=== PATIENT | male | born 1935 | race Caucasian/White ===

== ENCOUNTER 2020-05-03 20:10 | Emergency (ER) | payer MEDICARE, SELFPAY ==
[2020-05-03] VITALS (9 sets, daily range): BP systolic 113–162; BP diastolic 74–81; PULSE 80–85; RESP 15–26; TEMP 37.2; O2SAT 93–96
--- NOTE | ~2020-05-03 | XR_ITS ---
EXAMINATION: XR chest 1V portable INDICATION: Shortness of breath and fever TECHNIQUE: Portable AP chest at 2044 hours COMPARISON: 09/27/2013 FINDINGS: The lungs are free of acute opacities. There is no pleural effusion or pneumothorax. The ca rdiomediastinal silhouette is normal. Calcified left hilar lymph nodes are consistent with old granul omatous disease. IMPRESSION: 1. No acute cardiopulmonary abnormality. Reviewed, dictated and finalized at location A. ING PROGRAM CHAIR
--- NOTE | 2020-05-03 20:23 | ECG_ITS ---
Measurements Intervals [place] Rate: 84 P: 63 CA: 172 QRS: -23 QRSD: 133 T: 104 QT: 382 QTc: 453 Interpretive Statements SINUS RHYTHM INTRAVENTRICULAR CONDUCTION DELAY BORDERLINE R WAVE PROGRESSION, ANTERIOR LEADS BORDERLINE ST-T WAVE ABNORMALITY- HIGH LATERAL LEADS BASELINE WANDER- I BORDERLINE ECG Electronically Signed On 05-04-2020 7:27:42 BOILER SETTER by Nick Lopez D.O.
[2020-05-03 20:33] LABS: Basophils Percent Auto 0.3 % (0.2-1.2); Eosinophils Percent Auto 0.4 % (0-4.4); Hematocrit 42.4 % (42.0-52.0); Hemoglobin 14.4 g/dL (14.0-18.0); Immature Granulocyte Absolute 0.06 K/mm3 (0.00-0.031); Immature Granulocyte Percent A 0.8 % (0-0.5); Lymphocytes Absolute Auto 0.27 K/mm3 (0.9-3.2); Lymphocytes Percent Auto 3.7 % (18.3-44.2); Mean Corpuscular Hemoglobin 33.8 pg (26-34); Mean Corpuscular Volume 99.5 fl (80-100); Mean Platelet Volume 8.3 fl (7.4-10.4); Monocytes Absolute Auto 1.1 K/mm3 (0.1-0.6); Monocytes Percent Auto 14.4 % (2.6-8.5); Neutrophils Absolute Auto 5.9 K/mm3 (1.3-6.7); Neutrophils Percent Auto 80.4 % (45.5-73.1); Platelet Count Result 123 k/mm3 (150-375); Red Blood Count 4.26 M/mm3 (4.6-6.20); Red Cell Distribution Width 12.8 % (11.5-14.5); White Blood Count 7.3 K/mm3 (4.5-10.0)
[2020-05-03 20:44] LABS: Anion Gap 9 mmol/L (8-16); Blood Urea Nitrogen 40 mg/dL (9-20); Calcium 9.4 mg/dL (8.4-10.2); Carbon Dioxide 29 mmol/L (22-30); Chloride 97 mmol/L (98-107); Estimated CRCL calculation 30 ml/min; Estimated Glomerular Filt Rate 45; Glucose 142 mg/dL (75-110); Potassium 4.1 mmol/L (3.4-5.0); Sodium 135 mmol/L (137-145)
[2020-05-03] MEDS: ALBUTEROL SULFATE (*SP) AEROSOL 1 PUFF 2 PUFF INHALATION (20:59)
[2020-05-03 21:29] LABS: Alanine Aminotransferase 24 U/L (4-50); Alkaline Phosphatase 91 U/L (38-126); Aspartate Amino Transferase 28 U/L (17-59); Bilirubin,Total 0.4 mg/dL (0.2-1.3)
[2020-05-03 21:41] LABS: NT Pro B Type Natriuretic Pept 690 PG/ML (5-100); Troponin I 0.026 ng/mL (0.000-0.034)
--- NOTE | 2020-05-03 22:11 | ED.GENADULT ---
HPI - General Adult General Chief complaint: Shortness of Breath/Dyspnea Stated complaint: short of breath Time Seen by Provider: 05/03/20 20:29 History of Present Illness HPI narrative: Patient is an 84-year-old gentleman who presents to the emergency department with chief complaint of shortness of breath. The patient reports that tonight he had a coughing fit and then felt as though he was short of breath. The patient states that he decided to come to the emergency department for evaluation and states that he is scared that he may have had Covid exposure even though he has been wearing a mask patient reported that several days ago he decided to go out with his grandson and have a beer at a bar. Patient reports that he had a tickle in his throat and has had a dry cough that has been nonproductive. Patient denies fever denies chills reports that he is not been tested for COVID-19. Related Data Home Medications Medication Instructions Recorded Confirmed aspirin 81 mg tablet,delayed 81 mg PO DAILY 03/19/19 01/22/20 release naproxen sodium 220 mg tablet 220 mg PO BID PRN 03/19/19 01/22/20 triamcinolone acetonide 0.1 % 1 applic TOPICAL QID 03/19/19 01/22/20 topical cream cetirizine 10 mg tablet 5 mg PO DAILY PRN 09/05/19 01/22/20 docusate sodium 100 mg tablet 100 mg PO BID 09/05/19 01/22/20 [id number] tablet 1 tablet PO .QD tablet 09/05/19 01/22/20 melatonin 10 mg capsule 10 mg PO DAILY cap 09/05/19 01/22/20 timolol maleate 0.25 % eye drops 1 drop EACH EYE Q12H 12/23/19 01/22/20 Allergies Allergy/AdvReac Type Severity Reaction Status Date / Time diclofenac Allergy Unknown unknown Verified 11/10/19 09:25 lisinopril Allergy Unknown cough Verified 11/10/19 09:25 Sulfa (Sulfonamide Allergy Unknown Pt does Verified 11/10/19 09:25 Antibiotics) not remember reaction metronidazole AdvReac Severe DIARRHEA Verified 11/10/19 09:25 Review of Systems Review of Systems: Narrative: A 10 system review of systems was completed on the patient and is negative except for what is stated in the HPI. Nursing and ancillary documentation was reviewed. [facility] Past Medical History Medical History Achalasia 2013 BMI 26.0-26.9,adult Surgical History Surgical History H/O hernia repair 06/07/2010 History of colonoscopy 09/05/2013 History of esophageal surgery Heller myotomy with gastric wrap, 02/11/2014 Social History Social History Smoking status: Never smoker Alcohol intake: current Exam Narrative: Exam Narrative: GENERAL: Well-appearing, well-nourished, and in no acute distress. HEAD: Normocephalic, atraumatic. EYES: PERRLA and EOMI. ENT: Nares clear, no rhinorrhea or epistaxis. Mucous membranes moist. NECK: Supple. CHEST: Clear to auscultation. No respiratory distress. HEART: Regular rate and rhythm. No murmur heard. Normal peripheral pulses. ABDOMEN: Soft, nontender, nondistended, normal active bowel sounds. EXTREMITIES: Normal range of motion. No edema. SKIN: Warm, dry, no rash. NEURO: No focal deficits. Alert and oriented x3. PSYCH: Normal mood and affect. Course Course Emergency Course: Patient's EKG showed no evidence of acute ischemia. Initial troponin was in the negative range. BNP was mildly elevated but he does have prior history of mild elevation in his BNP. The chest x-ray showed no evidence of focal infiltrate and no findings consistent with congestive heart failure. Patient is feeling much better was able to ambulate without hypoxia. Vital Signs Vital signs: Vital Signs Temperature 37.2 C 05/03/20 20:17 Pulse Rate 82 05/03/20 20:17 Respiratory Rate 22 H 05/03/20 20:17 Blood Pressure 162/81 H 05/03/20 20:17 Pulse Oximetry 96 05/03/20 20:17 Temperature 37.2 C 05/03/20 20:1
--- NOTE | 2020-05-03 22:18 | PC.NURSE ---
Patient ambulated with SpO2 sensor. Patient's O2 ranged from 92%-94% on room air. CHRISTINE Carrero notified.
[2020-05-04 18:44] LABS: SARS-CoV-2 RNA PCR Positive
== END 2020-05-03 22:50 | disposition home or self-care (01) ==
PROVIDERS: Emergency Provider Emergency Medicine; PCP Family Medicine
DX: U07.1 COVID-19 (principal); Z79.82 Long term (current) use of aspirin; I45.9 Conduction disorder, unspecified; R94.31 Abnormal electrocardiogram [ECG] [EKG]; E78.00 Pure hypercholesterolemia, unspecified; I10 Essential (primary) hypertension; I35.0 Nonrheumatic aortic (valve) stenosis; N40.0 Benign prostatic hyperplasia without lower urinary tract symptoms; Z87.442 Personal history of urinary calculi; M19.90 Unspecified osteoarthritis, unspecified site; M10.9 Gout, unspecified; E11.9 Type 2 diabetes mellitus without complications; H40.9 Unspecified glaucoma
CPT/HCPCS: 36415; 71045; 80048; 80076; 83605; 83880; 84484; 85025; 87635; 93005; 94640; 99284; A9270; C9803; U0003

== ENCOUNTER 2020-05-12 19:29 | Inpatient (IN) | payer MEDICARE, SELFPAY ==
[2020-05-12] VITALS (17 sets, daily range): BP systolic 119–170; BP diastolic 67–87; PULSE 78–99; RESP 18–33; TEMP 36.2–36.9; O2SAT 90–97
--- NOTE | ~2020-05-12 | CT_ITS ---
EXAMINATION: CTA chest PE protocol EXAM DATE: 05/12/2020 21:50 INDICATION: Shortness of breath and elevated d-dimer. TECHNIQUE: Spiral CTA of the chest (pulmonary arteries) was performed with 100 cc Omnipaque 350 intr avenous contrast injection. Images were acquired during the pulmonary arterial phase. Coronal maxi mum intensity projection 3D-reconstructions were created by the technologist on dedicated workstation . Axial, coronal and sagittal reformatted images were reviewed. The dose-length product (DLP) for t his examination was 300.57 mGy-cm. The exposure was tailored according to patient size (auto mA exp osure control), and iterative reconstruction (ASIR) was used as additional dose reduction technique. Correlation is made to chest x-ray 05/03/2020. FINDINGS: Pulmonary arteries are well opacified and without intraluminal filling defects. No thora cic aortic dissection. Moderate amount of right upper and bilateral lower lobe groundglass airspace disease which could be acute infectious process, please clinically correlate. COVID 19 should be cons idered/excluded. There are no pleural or pericardial effusions. There is moderate emphysema. Trache obronchial tree is patent. Anterior mediastinal nodule of soft tissue measuring 1.6 1.8 x 1.6 cm. T here is mild right hilar adenopathy which is probably reactive. There is no pneumothorax. Heart no rmal in size. There is small sliding gastroesophageal hiatal hernia. There is moderate coronary art erial calcification, arterial sclerosis. Upper abdomen is unremarkable. There is thoracic spondylo sis without osteoblastic or osteolytic lesions identified. IMPRESSION: 1. Moderate amount of groundglass airspace disease, likely new compared to chest x-ray last month. M ost likely acute infectious process. Recommend considering/excluding COVID pneumonia. 2. Right hilar adenopathy. Anterior mediastinal nodule, could be lymph node or mass such as thymic c ancer returned cell tumor. Consider one-month follow-up chest CT. 3. Moderate emphysema. 4. No pulmonary emboli. Reviewed, dictated and finalized at location A. OMING ROOM INSPECTOR IMPRESSION: 1. Moderate amount of groundglass airspace disease, likely new compared to sally st x-ray last month. Most likely acute infectious process. Recommend considerin g/excluding COVID pneumonia. 2. Right hilar adenopathy. Anterior mediastinal nodule, could be lymph node or mass such as thymic cancer returned cell tumor. Consider one-month follow-up c hest CT. 3. Moderate emphysema. 4. No pulmonary emboli.
--- NOTE | 2020-05-12 19:56 | ED.WEAKNESS ---
HPI - Weakness General Chief complaint: Weakness Stated complaint: weakness/covid +/n/v/d Time Seen by Provider: 05/12/20 19:33 Source: patient Mode of arrival: ambulatory Limitations: no limitations History of Present Illness HPI Narrative: Patient is an 84-year-old male complaining of generalized weakness accompanied by diarrhea for the past 2 days. Patient describes his diarrhea as loose watery nonbloody. Patient states that he was diagnosed with Covid 1 week ago. Patient denies any chest pain, shortness of breath, abdominal pain, nausea, vomiting, fever or chills. Per EMS, when they bead picker the patient his oxygen sat was around 86% and his blood sugar was 56. Patient was started on 2 L nasal cannula and was given D10. Related Data Home Medications Medication Instructions Recorded Confirmed aspirin 81 mg tablet,delayed 81 mg PO DAILY 03/19/19 01/22/20 release naproxen sodium 220 mg tablet 220 mg PO BID PRN 03/19/19 01/22/20 triamcinolone acetonide 0.1 % 1 applic TOPICAL QID 03/19/19 01/22/20 topical cream cetirizine 10 mg tablet 5 mg PO DAILY PRN 09/05/19 01/22/20 docusate sodium 100 mg tablet 100 mg PO BID 09/05/19 01/22/20 [id number] tablet 1 tablet PO .QD tablet 09/05/19 01/22/20 melatonin 10 mg capsule 10 mg PO DAILY cap 09/05/19 01/22/20 timolol maleate 0.25 % eye drops 1 drop EACH EYE Q12H 12/23/19 01/22/20 Allergies Allergy/AdvReac Type Severity Reaction Status Date / Time diclofenac Allergy Unknown unknown Verified 05/12/20 20:06 lisinopril Allergy Unknown cough Verified 05/12/20 20:06 Sulfa (Sulfonamide Allergy Unknown Pt does Verified 05/12/20 20:06 Antibiotics) not remember reaction metronidazole AdvReac Severe DIARRHEA Verified 05/12/20 20:06 Review of Systems Review of Systems: All systems reviewed & are unremarkable except as noted in HPI and below Constitutional: Constitutional: Denies body ache(s), Denies chills, Denies excessive sweating, Denies fever(s), Denies headache(s), Denies lethargy, Denies malaise and Denies weight loss Eyes: Eyes: Denies blurry vision, Denies change in vision and Denies loss of vision ENT: Denies dizziness, Denies ear discharge, Denies headache(s), Denies lip swelling, Denies epistaxis, Denies nasal congestion, Denies neck pain, Denies throat swelling and Denies tongue swelling Cardiovascular: Cardiovascular: Denies chest pain, Denies chest pain at rest, Denies chest pain with activity, Denies diaphoresis, Denies rapid heart rate, Denies edema, Denies irregular heart rhythm, Denies lightheadedness, Denies palpitations, Denies dyspnea and Denies dyspnea on exertion Respiratory: Respiratory: Denies chest congestion, Denies cough, Denies hemoptysis, Denies dyspnea and Denies dyspnea on exertion Gastrointestinal: Gastrointestinal: Denies abdominal pain, Denies melena, Denies hematochezia, Denies nausea, Denies vomiting and Denies hematemesis Musculoskeletal: Musculoskeletal: Denies abnormal gait, Denies deformity, Denies joint swelling, Denies limited range of motion, Denies neck pain and Denies numbness Neurologic: Denies Abnormal speech present, Denies abnormal gait, Denies confusion, Denies dizziness, Denies headache(s), Denies focal weakness, Denies loss of vision, Denies numbness, Denies Other visual disturbances, Denies Sensory deficit (Neuro) and Denies weakness Psychiatric: Psychiatric: Denies confusion, Denies depression, Denies auditory hallucinations, Denies homicidal ideation and Denies suicidal ideation Endocrine: Endocrine: Denies cold intolerance, Denies excessive sweating, Denies fatigue, Denies heat intolerance and Denies palpitations Hematologic/Lymphatic: Hematologic/Lymphatic: Denies easy bleeding and Denies easy bruising Allergic/Immunologic: Allergic/Immunologic: Denies lip swelling, Denies throat swelling and Denies tongue swelling PMFSH Past Medical History Medical History
--- NOTE | 2020-05-12 20:03 | ECG_ITS ---
Measurements Intervals [place] Rate: 83 P: 51 MO: 162 QRS: -25 QRSD: 126 T: 76 QT: 402 QTc: 473 Interpretive Statements SINUS RHYTHM ATRIAL PREMATURE COMPLEXES INTRAVENTRICULAR CONDUCTION DELAY POSSIBLE LEFT VENTRICULAR HYPERTROPHY CANNOT RULE OUT SEPTAL INFARCT, AGE INDETERMINATE BORDERLINE ST-T WAVE ABNORMALITY- HIGH LATERAL LEADS BASELINE ARTIFACT- I, II, III, AVR, AVL ABNORMAL ECG Electronically Signed On 05-12-2020 20:34:09 DIRECTOR OF FIRST IMPRESSIONS by Nick Lopez D.O.
[2020-05-12 20:12] LABS: Glucose Point of Care 111 (65-105)
[2020-05-12 20:13] LABS: Hematocrit 36.4 % (42.0-52.0); Hemoglobin 12.2 g/dL (14.0-18.0); Immature Platelet Fraction Pct 2.4 % (0.9-11.2); Mean Corpuscular HGB Conc 33.5 g/dl (32-36); Mean Corpuscular Hemoglobin 33.3 pg (26-34); Mean Corpuscular Volume 99.5 fl (80-100); Mean Platelet Volume 9.2 fl (7.4-10.4); Platelet Count Result 158 k/mm3 (150-375); Red Blood Count 3.66 M/mm3 (4.6-6.20); Red Cell Distribution Width 12.7 % (11.5-14.5); White Blood Count 5.6 K/mm3 (4.5-10.0)
--- NOTE | 2020-05-12 20:21 | PC.NURSE ---
per erp dr henson ok to hold d50 amp (BS 111), let dextrose from ems infuse, then start LR wide open. Also ok to give OJ po at this time.
[2020-05-12 20:23] LABS: Alanine Aminotransferase 23 U/L (4-50); Albumin Level 3.1 g/dL (3.5-5.1); Alkaline Phosphatase 62 U/L (38-126); Anion Gap 4 mmol/L (8-16); Aspartate Amino Transferase 60 U/L (17-59); Bilirubin,Total 0.5 mg/dL (0.2-1.3); Blood Urea Nitrogen 32 mg/dL (9-20); Carbon Dioxide 33 mmol/L (22-30); Chloride 95 mmol/L (98-107); D Dimer 3.81 ug/mL (<0.48); Estimated CRCL calculation 28 ml/min; Estimated Glomerular Filt Rate 39; Glucose 125 mg/dL (75-110); Potassium 3.6 mmol/L (3.4-5.0); Sodium 132 mmol/L (137-145)
[2020-05-12 20:34] LABS: Band Neutrophils Percent 10 % (0-6); Lymphocytes Absolute Manual 0.56 K/mm3 (1.1-4.5); Monocytes Absolute Manual 0.16 K/mm3 (0.1-0.90); Monocytes Percent Manual 3 % (3-9); Neutrophils Absolute Manual 4.87 K/mm3 (1.3-6.7); Neutrophils Percent Manual 77 % (46-73); Total Cells Counted 100
[2020-05-12 20:35] LABS: Platelet Estimate Adequate (Adequate)
[2020-05-12 20:37] LABS: Alveolar/Arterial O2 Gradient 95.6 mmHg; Base Excess ABG 0.6 mEq/l (+/-2.0); Carboxyhemoglobin 0.7 % THb (0-2.0); Device NASAL CANNULA; Fractional Inspired Oxygen 28 %; Methemoglobin ABG 0.3 %THb (0-1.5); Modified Allen's Test Pass; Oxygen Content ABG 15.4 %vol (16.0-22.0); Oxygen Saturation ABG 93.6 % (95.0-100.0); Oxyhemoglobin 90.6 % THb (90.0-100.0); PCO2 ABG 34.4 mmHg (35.0-45.0); PO2 ABG 63.5 mmHg (80.0-100.0); PO2 FiO2 Ratio Arterial Blood 2.27 %; Reduced Hemoglobin 8.4 %THb (0-5.0); Site Drawn LEFT RADIAL; Total Hemoglobin 12.1 g/dL (12.0-18.0); pH ABG 7.461 (7.350-7.450)
[2020-05-12] MEDS: LACTATED RINGERS 1,000 ML 999 ML IV CONT (21:26)
[2020-05-12 22:55] LABS: Glucose Point of Care 110 (65-105)
--- NOTE | 2020-05-12 23:15 | PM.IMHP ---
H&P: HPI History of Present Illness Date/Time: 05/12/20 23:15 Chief Complaint: shortness of breath Narrative: This is an 84 year old diabetic male with hyperlipidemia, glaucoma, and GERD who presented to the hospital with ongoing generalized weakness, diarrhea, and shortness of breath for over one week duration. He was diagnosed with COVID-19 last week. He denies any chest pain, shortness of breath, abdominal pain, nausea, vomiting, fever or chills. Today the patient experienced significant shortness of breath and EMS was called out and found him saturating around 86% and his blood sugar was 56. He was placed on oxygen and given dextrose. In the ER tonight the patient was evaluated and found to be hypoxemic on ABG. Routine labs demonstrated mild acute renal failure. CTA Chest revealed a moderate amount of groundglass airspace disease and right hilar adenopathy. Anterior mediastinal nodule. The patient overall is a very poor historian and has no other complaints. He denies any other symptoms that I ask him. No other complaints. Review of Systems Review of Systems: All systems reviewed & are unremarkable except as noted in HPI and below PMFSH Past Medical History Medical History Achalasia 2014 Aortic aneurysm of unspecified site, without rupture BMI 26.0-26.9,adult Chronic kidney disease, stage 3 (moderate) Chronic obstructive pulmonary disease, unspecified Diabetes mellitus Gastro-esophageal reflux disease without esophagitis Irritable bowel syndrome Major depressive disorder, recurrent, moderate Surgical History Surgical History H/O hernia repair 06/07/2010 History of colonoscopy 09/05/2013 History of esophageal surgery Heller myotomy with gastric wrap, 02/11/2014 Social History Social History Smoking status: Never smoker Alcohol intake: never Substance use: never Gender identity (if verbalized by the patient): Male Sexual Orientation (if Verbalized by the Patient): Straight or Heterosexual Spiritual care concerns: No Meds Home Medications and Allergies Home Medications Medication Instructions Recorded Confirmed Type triamcinolone acetonide 0.1 % 1 applic TOPICAL QID PRN 03/19/19 05/13/20 History topical cream omeprazole 40 mg capsule,delayed 40 mg PO DAILY #90 cap 06/16/19 05/13/20 Rx release cetirizine 10 mg tablet 5 mg PO DAILY PRN 09/05/19 05/13/20 History docusate sodium 100 mg tablet 100 mg PO BID 09/05/19 05/13/20 History allopurinol 300 mg tablet 300 mg PO DAILY #90 tablet 11/24/19 05/13/20 Rx spironolactone 25 1 tablet PO DAILY #90 tablet 12/29/19 05/13/20 Rx mg-hydrochlorothiazide 25 mg tablet alprazolam 0.25 mg tablet 0.25 mg PO TID PRN #90 tablet 02/20/20 05/13/20 Rx latanoprost 0.005 % eye drops See Rx Instructions .ROUTE 02/23/20 05/13/20 Rx .COMPLEX #7.5 ml glimepiride 4 mg tablet 4 mg PO QAM #90 tablet 03/15/20 05/13/20 Rx finasteride 5 mg PO HS 05/13/20 05/13/20 History ketoconazole 1 applic TOPICAL DAILY PRN 05/13/20 05/13/20 History metoprolol succinate 50 mg PO DAILY 05/13/20 05/13/20 History simvastatin 20 mg PO HS 05/13/20 05/13/20 History tamsulosin [Flomax] 0.4 mg PO HS 05/13/20 05/13/20 History trazodone 100 mg PO HS 05/13/20 05/13/20 History Allergies Allergy/AdvReac Type Severity Reaction Status Date / Time diclofenac Allergy Unknown unknown Verified 05/12/20 20:06 lisinopril Allergy Unknown cough Verified 05/12/20 20:06 Sulfa (Sulfonamide Allergy Unknown Pt does Verified 05/12/20 20:06 Antibiotics) not remember reaction metronidazole AdvReac Severe DIARRHEA Verified 05/12/20 20:06 Vital Signs Vital Signs - 24 hr 05/12/20 19:56 05/12/20 20:00 05/12/20 20:01 Temperature 36.2 C L Pulse Rate 82 85 84 Respiratory Rate 27 H 21 H 22 H Blood Pressure 119/78 137/77 Pulse Ox
--- NOTE | 2020-05-12 23:33 | PC.NURSE ---
This patient, Jose De Jesus Dennis, was admitted to IMU Room 209-01. Patient/family oriented to hospital policies and general routines including ID bracelet, bed and alarms, visiting hours, pain management, procedures, bathroom and other care routines, personal items, smoking policy, room service/diet, and visiting hours. Information on how to activate the Rapid Response Team has been discussed. Patient/Family are encouraged to report perceived risks to care and to ask questions if they do not understand what they are told or what they should do.
[2020-05-13] VITALS (14 sets, daily range): BP systolic 116–185; BP diastolic 58–110; PULSE 69–91; RESP 18–22; TEMP 36.4–36.6; O2SAT 90–95; BMI 24.6
[2020-05-13] MEDS: SODIUM CHLORIDE 0.9% IV 1,000 ML 100 ML IV CONT (00:48)
[2020-05-13 00:55] LABS: Glucose Point of Care 88 (65-105)
[2020-05-13] MEDS: DEXTROSE 5%/0.9% SOD CHL 1,000 ML 80 ML IV CONT (01:18)
[2020-05-13 02:18] LABS: Alveolar/Arterial O2 Gradient 87.6 mmHg; Base Excess ABG 1.9 mEq/l (+/-2.0); Fractional Inspired Oxygen 28 %; HCO3 ABG 25.8 mEq/l (22.0-26.0); Oxygen Content ABG 16.3 %vol (16.0-22.0); Oxygen Saturation ABG 94.2 % (95.0-100.0); Oxyhemoglobin 91.4 % THb (90.0-100.0); PCO2 ABG 38.1 mmHg (35.0-45.0); PO2 ABG 67.1 mmHg (80.0-100.0); Total Hemoglobin 12.7 g/dL (12.0-18.0); pH ABG 7.449 (7.350-7.450)
[2020-05-13 02:20] LABS: Device NASAL CANNULA; Modified Allen's Test Pass; Site Drawn RIGHT RADIAL
[2020-05-13] MEDS: ALBUTEROL SULFATE (*SP) AEROSOL 1 PUFF 2 PUFF INHALATION ×4 (03:07→20:43)
[2020-05-13 05:33] LABS: Hematocrit 38.6 % (42.0-52.0); Hemoglobin 12.9 g/dL (14.0-18.0); Mean Corpuscular HGB Conc 33.4 g/dl (32-36); Mean Corpuscular Hemoglobin 32.9 pg (26-34); Mean Corpuscular Volume 98.5 fl (80-100); Mean Platelet Volume 9.4 fl (7.4-10.4); Platelet Count Result 148 k/mm3 (150-375); Red Blood Count 3.92 M/mm3 (4.6-6.20); White Blood Count 11.2 K/mm3 (4.5-10.0)
[2020-05-13 05:35] LABS: Glucose Point of Care 240 (65-105)
[2020-05-13 06:02] LABS: Anion Gap 8 mmol/L (8-16); Blood Urea Nitrogen 26 mg/dL (9-20); Carbon Dioxide 31 mmol/L (22-30); Chloride 94 mmol/L (98-107); Estimated CRCL calculation 36 ml/min; Estimated Glomerular Filt Rate 53; Glucose 234 mg/dL (75-110); Potassium 4.2 mmol/L (3.4-5.0); Sodium 133 mmol/L (137-145)
[2020-05-13 06:04] LABS: Band Neutrophils Percent 8 % (0-6); Lymphocytes Absolute Manual 0.22 K/mm3 (1.1-4.5); Monocytes Absolute Manual 0.33 K/mm3 (0.1-0.90); Monocytes Percent Manual 3 % (3-9); Neutrophils Absolute Manual 10.64 K/mm3 (1.3-6.7); Neutrophils Percent Manual 87 % (46-73); Total Cells Counted 100
[2020-05-13 06:05] LABS: Large Platelets Present
[2020-05-13] MEDS: ENOXAPARIN 30 MG/0.3 ML SYRINGE SUB-Q (08:48)
[2020-05-13] MEDS: DEXAMETHASONE SOD PHOS INJ 4 MG/ML VIAL 6 MG IV PUSH (08:48)
[2020-05-13] MEDS: PANTOPRAZOLE 40 MG TABLET PO (08:49)
[2020-05-13] MEDS: METOPROLOL SUCCINATE EXT REL 50 MG TABCR PO (08:49)
[2020-05-13] MEDS: DOCUSATE SODIUM 100 MG CAPSULE PO ×2 (08:49→17:45)
[2020-05-13 09:32] LABS: Glucose Point of Care 288 (65-105)
[2020-05-13 12:43] LABS: Glucose Point of Care 361 (65-105)
[2020-05-13 13:31] LABS: Estimated CRCL calculation 36 ml/min; Estimated Glomerular Filt Rate 53
[2020-05-13 13:38] LABS: Alanine Aminotransferase 29 U/L (4-50)
[2020-05-13] MEDS: ACETAMINOPHEN 325 MG TABLET 650 MG PO (15:55)
[2020-05-13] MEDS: CYCLOBENZAPRINE HCL 5 MG TABLET PO (15:57)
--- NOTE | 2020-05-13 16:59 | PM.IMPN ---
Progress Note: A&P Assessment and Plan (1) Chronic obstructive pulmonary disease, unspecified: Code(s): J44.9 - Chronic obstructive pulmonary disease, unspecified Status: Acute Assessment and Plan: Currently on NC Weaned off of oxygen to RA Breathing treatments. (2) Gastro-esophageal reflux disease without esophagitis: Code(s): K21.9 - Gastro-esophageal reflux disease without esophagitis Status: Acute Assessment and Plan: On PPI (3) Chronic kidney disease, stage 3 (moderate): Code(s): N18.3 - Chronic kidney disease, stage 3 (moderate) Status: Acute Assessment and Plan: Continue to monitor Bun/cr. (4) Acute hypoxemic respiratory failure: Code(s): J96.01 - Acute respiratory failure with hypoxia Status: Acute Assessment and Plan: Likely secondary to pneumonia. (5) Pneumonia due to COVID-19 virus: Code(s): U07.1 - COVID-19; J12.82 - Pneumonia due to coronavirus disease 2019 Status: Acute Assessment and Plan: Remdesivir + Decadron Breathing treatments. Subjective Date/time seen: 05/13/20 16:59 I feel fine. Review of Systems Review of Systems: Narrative: Feeling very fatigued. Constitutional: Comments: Generalized malaise. Cardiovascular: Comments: no chest pain. Respiratory: Comments: cough, sob. Gastrointestinal: Comments: no n/v/abdominal pain. Musculoskeletal: Musculoskeletal: Reports muscle weakness Integumentary/Breasts: Comments: no rashes. Neurologic: Comments: no sensory motor deficit. Exam Narrative: Exam Narrative: Sitting in NAD. Const: General: comfortable, awake, Physically active, tired appearing and other Nutritional Appearance: thin Orientation/consciousness: patient oriented x3 Limitations: no limitations HENMT: Head: normal to inspection and normocephalic Ears: hearing grossly normal bilaterally General nose exam: Normal external nose present Face and sinus: normal facial exam Eyes: General: appearance normal, both eyes and all related structures Pupils: Equal, round and reactive pupils present EOM: EOMs intact bilaterally Neck: Neck: full ROM, no lymphadenopathy, supple and no JVD Resp: Effort & Inspection: normal respiratory effort and able to speak in complete sentences Auscultation: clear to auscultation bilaterally Cardio: Jugular venous distension: no JVD Rate: regular rate Rhythm: regular rhythm GI: GI Palp: Yes Soft to palpation and Yes No hepatosplenomegaly present Skin: General skin exam: normal color Rashes: no rashes Neuro: General: patient oriented x3 and CN's II-XI intact bilaterally Cranial nerves: Yes CN's II-XII intact bilaterally and Yes Equal, round and reactive pupils present Speech: normal speech Motor exam (neuro): 5/5 motor strength present throughout Extrem: General: normal to inspection and no pedal edema Objective Data Vital Signs Vital Signs: Vital Signs - 24 hr 05/12/20 19:56 05/12/20 20:00 05/12/20 20:01 Temperature 97.2 F L Pulse Rate 82 85 84 Respiratory Rate 27 H 21 H 22 H Blood Pressure 119/78 137/77 Pulse Oximetry 94 93 05/12/20 20:02 05/12/20 20:25 05/12/20 20:30 Temperature Pulse Rate 80 85 88 Respiratory Rate 23 H 22 H Blood Pressure Pulse Oximetry 92 94 05/12/20 20:31 05/12/20 22:20 05/12/20 22:30 Temperature Pulse Rate 96 99 93 Respiratory Rate 29 H 33 H 19 Blood Pressure 147/84 H Pulse Oximetry 94 05/12/20 22:31 05/12/20 22:45 05/12/20 22:46 Temperature Pulse Rate 94 92 92 Respiratory Rate 33 H 32 H 31 H Blood Pressure 158/87 H 153/86 H Pulse Oximetry 91 90 91 05/12/20 22:47 05/12/20 23:00 05/12/20 23:01 Temperature Pulse Rate 90 89 90 Respiratory Rate 27 H 29 H 26 H Blood Pressure 139/67 Pulse Oximetry 90 05/12/20 23:29 05/12/20 23:30 05/13/20 00:00 Temperature 98.4 F Pulse Rate 88 88 90 Respiratory Rate 29 H 18 Blood Pressure 139/67 170/80 H Puls
[2020-05-13] MEDS: REMDESIVIR 200 MG/NS 250 ML 200 MG/250 ML BAG 250 MG IVPB (17:45)
[2020-05-13] MEDS: INSULIN ASPART (*BKC) 100 UNITS/ML SUB-Q (17:45)
[2020-05-13] MEDS: oxyCODONE HCL (*CRX) 5 MG TAB IR PO (18:47)
--- NOTE | 2020-05-13 18:50 | PC.NURSE ---
Called and verified with Dr. Montelongo that she wants this patient to remain on the current heart healthy diet and to remain on 4 units SUB Q TIDWM R/T elevated blood sugars. She said she wanted the orders to remain as is for now.
[2020-05-13 18:57] LABS: Glucose Point of Care 425 (65-105)
--- NOTE | 2020-05-13 19:59 | PC.NURSE ---
This patient, Jose De Jesus Dennis, was transferred to [[id number]] on 05/13/20 at 1915. Personal belongings sent with patient. Report given to [ROBERT Dill]. Appropriate documentation sent with patient.
[2020-05-13] MEDS: LATANOPROST 0.005% OP SOLN 2.5 ML BTL 1 DROP EACH EYE (20:34)
[2020-05-13] MEDS: TAMSULOSIN HCL 0.4 MG CAPSULE PO (20:34)
[2020-05-13] MEDS: SIMVASTATIN 20 MG TABLET PO (20:35)
[2020-05-13] MEDS: FINASTERIDE 5 MG TABLET PO (20:35)
[2020-05-13] MEDS: traZODone HCL 50 MG TABLET 100 MG PO (20:35)
[2020-05-13 22:34] LABS: Glucose Point of Care 311 (65-105)
[2020-05-14] VITALS (9 sets, daily range): BP systolic 124–163; BP diastolic 59–90; PULSE 83–97; RESP 18–24; TEMP 36.3–36.4; O2SAT 91–92
[2020-05-14] MEDS: ALPRAZolam (*CRX) 0.25 MG TABLET PO (04:07)
[2020-05-14] MEDS: ACETAMINOPHEN 325 MG TABLET 650 MG PO (04:09)
[2020-05-14] MEDS: DEXTROSE 5%/0.9% SOD CHL 1,000 ML 80 ML IV CONT (05:11)
--- NOTE | 2020-05-14 05:26 | PC.NURSE ---
0400: PT RESTLESS. C/O URGE TO VOID. UNABLE TO VOID X3 ATTEMPTS. IMPULSIVE AND GETTING OOB. C/O RT FLANK/SIDE PAIN. FLACC 5. BLADDER NON-DISTENDED. BLADDER SCANNED X3-LESS THAN 100ML. 0500: PT INCONTINENT OF URINE IN BED. PT STATES RT FLANK/SIDE PAIN RESOLVING. FLACC 0. RETURNED TO BED.
[2020-05-14 06:25] LABS: Alanine Aminotransferase 23 U/L (4-50); Estimated CRCL calculation 25 ml/min; Estimated Glomerular Filt Rate 34
[2020-05-14] MEDS: INSULIN ASPART (*BKC) 100 UNITS/ML SUB-Q ×3 (09:02→18:35)
[2020-05-14] MEDS: DEXAMETHASONE SOD PHOS INJ 4 MG/ML VIAL 6 MG IV PUSH (09:03)
[2020-05-14] MEDS: METOPROLOL SUCCINATE EXT REL 50 MG TABCR PO (09:04)
[2020-05-14] MEDS: DOCUSATE SODIUM 100 MG CAPSULE PO ×2 (09:04→18:35)
[2020-05-14] MEDS: ENOXAPARIN 30 MG/0.3 ML SYRINGE SUB-Q (09:04)
[2020-05-14] MEDS: PANTOPRAZOLE 40 MG TABLET PO (09:05)
[2020-05-14] MEDS: ALBUTEROL SULFATE (*SP) AEROSOL 1 PUFF 2 PUFF INHALATION ×3 (09:05→20:48)
[2020-05-14 09:37] LABS: Glucose Point of Care 327 (65-105)
[2020-05-14] MEDS: oxyCODONE HCL (*CRX) 5 MG TAB IR PO (13:25)
[2020-05-14 13:49] LABS: Glucose Point of Care 319 (65-105)
[2020-05-14] MEDS: REMDESIVIR 100 MG/NS 250 ML 100 MG/250 ML BAG 250 MG IVPB (14:33)
--- NOTE | 2020-05-14 18:00 | PM.IMPN ---
Progress Note: A&P Assessment and Plan (1) Chronic obstructive pulmonary disease, unspecified: Code(s): J44.9 - Chronic obstructive pulmonary disease, unspecified Status: Acute Assessment and Plan: Continue breathing treatments. Does not appear to be exacerbated. (2) Gastro-esophageal reflux disease without esophagitis: Code(s): K21.9 - Gastro-esophageal reflux disease without esophagitis Status: Acute Assessment and Plan: Continue PPI (3) Aortic aneurysm of unspecified site, without rupture: Code(s): I71.9 - Aortic aneurysm of unspecified site, without rupture Status: Acute Assessment and Plan: Stable Continue to monitor (4) Chronic kidney disease, stage 3 (moderate): Code(s): N18.3 - Chronic kidney disease, stage 3 (moderate) Status: Acute Assessment and Plan: Continue to monitor Daily I/O's (5) Acute hypoxemic respiratory failure: Code(s): J96.01 - Acute respiratory failure with hypoxia Status: Acute Assessment and Plan: Resolved Weaned off of Oxygen to RA. (6) Pneumonia due to COVID-19 virus: Code(s): U07.1 - COVID-19; J12.82 - Pneumonia due to coronavirus disease 2019 Status: Acute Assessment and Plan: Continue Remdesivir and Decadron. (7) Nonrheumatic aortic (valve) stenosis: Code(s): I35.0 - Nonrheumatic aortic (valve) stenosis Status: Acute Assessment and Plan: Caution with hydration. Subjective Date/time seen: 05/14/20 18:00 States that feels much better. Review of Systems Review of Systems: Narrative: Feeling fatigued Constitutional: Comments: no chills, no fevers, no rigors. ENT: Comments: no throat pain, no nasal congestion. Cardiovascular: Comments: no chest pain, no pnd, no orthopnea. Respiratory: Comments: no sob. Gastrointestinal: Comments: no n/v/abdominal pain. Musculoskeletal: Comments: no muscle aches or pain. Integumentary/Breasts: Comments: no rashes. Neurologic: Comments: no sensory motor deficit. Exam Narrative: Exam Narrative: Sitting in NAD. Const: General: comfortable, no acute distress, alert, awake, Physically active and tired appearing Nutritional Appearance: thin Orientation/consciousness: patient oriented x3 HENMT: Head: normocephalic Ears: hearing grossly normal bilaterally General nose exam: Normal external nose present Face and sinus: normal facial exam Eyes: General: appearance normal, both eyes and all related structures Pupils: Equal, round and reactive pupils present EOM: EOMs intact bilaterally Neck: Neck: no lymphadenopathy, supple and no JVD Resp: Effort & Inspection: normal respiratory effort and able to speak in complete sentences Auscultation: clear to auscultation bilaterally Cardio: Rate: regular rate Rhythm: regular rhythm GI: GI Palp: Yes Soft to palpation and Yes No hepatosplenomegaly present Skin: General skin exam: normal color Wounds: no wounds Neuro: General: patient oriented x3 and CN's II-XI intact bilaterally Cranial nerves: Yes CN's II-XII intact bilaterally and Yes Equal, round and reactive pupils present Cognition (Neuro): normal cognition Speech: normal speech Motor exam (neuro): 5/5 motor strength present throughout Extrem: General: no pedal edema Objective Data Vital Signs Vital Signs: Vital Signs - 24 hr 05/13/20 20:00 05/13/20 23:58 05/14/20 04:00 Temperature 97.8 F 97.9 F 97.6 F Pulse Rate 80 76 87 Respiratory Rate 18 20 20 Blood Pressure 116/75 118/58 L 125/59 L Pulse Oximetry 93 90 91 05/14/20 08:00 05/14/20 09:00 05/14/20 09:04 Temperature 97.4 F L Pulse Rate 83 83 Respiratory Rate 24 H Blood Pressure 163/90 H Pulse Oximetry 91 92 05/14/20 11:40 05/14/20 12:00 05/14/20 16:00 Temperature 97.4 F L 97.5 F L Pulse Rate 87 83 Respiratory Rate 22 H 24 H Blood Pressure 124/59 L 126/78 Pulse Oximetry 91 92 91 Intake/Output Intake/Output:
[2020-05-14] MEDS: LATANOPROST 0.005% OP SOLN 2.5 ML BTL 1 DROP EACH EYE (20:28)
[2020-05-14] MEDS: FINASTERIDE 5 MG TABLET PO (20:29)
[2020-05-14] MEDS: SIMVASTATIN 20 MG TABLET PO (20:29)
[2020-05-14] MEDS: traZODone HCL 50 MG TABLET 100 MG PO (20:30)
[2020-05-14] MEDS: TAMSULOSIN HCL 0.4 MG CAPSULE PO (20:30)
[2020-05-14 21:26] LABS: Glucose Point of Care 280 (65-105)
[2020-05-14 22:20] LABS: Glucose Point of Care 174 (65-105)
[2020-05-15] VITALS (10 sets, daily range): BP systolic 125–174; BP diastolic 66–88; PULSE 70–93; RESP 18–22; TEMP 36.2–37.2; O2SAT 90–98
[2020-05-15] MEDS: ALBUTEROL SULFATE (*SP) AEROSOL 1 PUFF 2 PUFF INHALATION ×4 (02:20→21:35)
[2020-05-15 06:43] LABS: Alanine Aminotransferase 28 U/L (4-50)
[2020-05-15 07:30] LABS: Estimated CRCL calculation 26 ml/min; Estimated Glomerular Filt Rate 36
[2020-05-15 08:14] LABS: Glucose Point of Care 244 (65-105)
[2020-05-15] MEDS: INSULIN ASPART (*BKC) 100 UNITS/ML SUB-Q ×3 (08:18→17:45)
[2020-05-15] MEDS: DEXAMETHASONE SOD PHOS INJ 4 MG/ML VIAL 6 MG IV PUSH (08:19)
[2020-05-15] MEDS: ENOXAPARIN 30 MG/0.3 ML SYRINGE SUB-Q (08:20)
[2020-05-15] MEDS: DOCUSATE SODIUM 100 MG CAPSULE PO ×2 (08:20→17:25)
[2020-05-15] MEDS: METOPROLOL SUCCINATE EXT REL 50 MG TABCR PO (08:21)
[2020-05-15] MEDS: PANTOPRAZOLE 40 MG TABLET PO (08:21)
[2020-05-15] MEDS: REMDESIVIR 100 MG/NS 250 ML 100 MG/250 ML BAG 250 MG IVPB (10:30)
[2020-05-15] MEDS: ACETAMINOPHEN 325 MG TABLET 650 MG PO (13:51)
--- NOTE | 2020-05-15 14:14 | PM.IMPN ---
Progress Note: A&P Assessment and Plan (1) Chronic obstructive pulmonary disease, unspecified: Code(s): J44.9 - Chronic obstructive pulmonary disease, unspecified Status: Acute Assessment and Plan: Continue breathing treatments Does not appear to be exacerbated. (2) Gastro-esophageal reflux disease without esophagitis: Code(s): K21.9 - Gastro-esophageal reflux disease without esophagitis Status: Acute Assessment and Plan: Continue PPI. (3) Aortic aneurysm of unspecified site, without rupture: Code(s): I71.9 - Aortic aneurysm of unspecified site, without rupture Status: Acute Assessment and Plan: Continue to monitor (4) Chronic kidney disease, stage 3 (moderate): Code(s): N18.3 - Chronic kidney disease, stage 3 (moderate) Status: Acute Assessment and Plan: Continue to monitor Bun/Cr. (5) Acute on chronic renal failure: Code(s): N17.9 - Acute kidney failure, unspecified; N18.9 - Chronic kidney disease, unspecified Status: Acute Assessment and Plan: Likely to be pre renal azotemia Gentle hydration. (6) Acute hypoxemic respiratory failure: Code(s): J96.01 - Acute respiratory failure with hypoxia Status: Acute Assessment and Plan: Down to [place] now [facility] (7) Pneumonia due to COVID-19 virus: Code(s): U07.1 - COVID-19; J12.82 - Pneumonia due to coronavirus disease 2019 Status: Acute Assessment and Plan: To complete Remdesivir and Decadron. Subjective Date/time seen: 05/15/20 14:14 States that he could not sleep well last night. Review of Systems Review of Systems: Narrative: Here due to generalized weakness after testing positive for Covid 19. Constitutional: Comments: Decreased appetite Cardiovascular: Comments: no chest pain. Respiratory: Comments: dry cough. Gastrointestinal: Comments: decreased appetite. Musculoskeletal: Comments: fatigue Neurologic: Comments: nosensorymotor deficit. Hematologic/Lymphatic: Comments: no LAP. Exam Narrative: Exam Narrative: Sitting in bed. Const: General: comfortable, alert, awake, Physically active and tired appearing Nutritional Appearance: thin Orientation/consciousness: patient oriented x3 Limitations: no limitations HENMT: Head: normal to inspection and normocephalic Ears: hearing grossly normal bilaterally General nose exam: Normal external nose present Face and sinus: normal facial exam Eyes: General: appearance normal, both eyes and all related structures Pupils: Equal, round and reactive pupils present EOM: EOMs intact bilaterally Neck: Neck: no lymphadenopathy and supple Resp: Effort & Inspection: able to speak in complete sentences Auscultation: clear to auscultation bilaterally Cardio: Jugular venous distension: no JVD Rate: regular rate Rhythm: regular rhythm GI: Inspection: normal to inspection GI Palp: Yes Soft to palpation and Yes No hepatosplenomegaly present Skin: General skin exam: normal color Lesions: no lesions Rashes: no rashes Wounds: no wounds Neuro: General: patient oriented x3 and CN's II-XI intact bilaterally Cranial nerves: Yes CN's II-XII intact bilaterally and Yes Equal, round and reactive pupils present Cognition (Neuro): normal cognition Speech: normal speech Motor exam (neuro): 5/5 motor strength present throughout Extrem: General: normal to inspection and no pedal edema Objective Data Vital Signs Vital Signs: Vital Signs - 24 hr 05/14/20 16:00 05/14/20 20:00 05/14/20 20:20 Temperature 97.5 F L 97.3 F L Pulse Rate 83 97 Respiratory Rate 24 H 20 18 Blood Pressure 126/78 145/73 H Pulse Oximetry 91 91 91 05/15/20 00:00 05/15/20 04:00 05/15/20 06:50 Temperature 97.2 F L 97.2 F L Pulse Rate 81 79 Respiratory Rate 20 18 Blood Pressure 174/72 H 129/88 Pulse Oximetry 96 90 91 05/15/20 08:00 05/15/20 08:21 Temperature 97.3 F L Pulse Rate 86 70 Res
[2020-05-15 14:26] LABS: Glucose Point of Care 156 (65-105)
[2020-05-15 15:08] LABS: Basophils Percent Auto 0.2 % (0.2-1.2); Hematocrit 37.9 % (42.0-52.0); Hemoglobin 12.8 g/dL (14.0-18.0); Immature Granulocyte Absolute 0.09 K/mm3 (0.00-0.031); Immature Granulocyte Percent A 0.6 % (0-0.5); Lymphocytes Percent Auto 2.7 % (18.3-44.2); Mean Corpuscular HGB Conc 33.8 g/dl (32-36); Mean Corpuscular Hemoglobin 33.1 pg (26-34); Mean Corpuscular Volume 97.9 fl (80-100); Mean Platelet Volume 9.4 fl (7.4-10.4); Monocytes Absolute Auto 0.5 K/mm3 (0.1-0.6); Neutrophils Absolute Auto 13.8 K/mm3 (1.3-6.7); Neutrophils Percent Auto 93.5 % (45.5-73.1); Platelet Count Result 187 k/mm3 (150-375); Red Blood Count 3.87 M/mm3 (4.6-6.20); Red Cell Distribution Width 12.9 % (11.5-14.5); White Blood Count 14.8 K/mm3 (4.5-10.0)
[2020-05-15 17:45] LABS: Anion Gap 11 mmol/L (8-16); Blood Urea Nitrogen 58 mg/dL (9-20); Calcium 7.8 mg/dL (8.4-10.2); Carbon Dioxide 30 mmol/L (22-30); Chloride 94 mmol/L (98-107); Estimated CRCL calculation 30 ml/min; Estimated Glomerular Filt Rate 41; Glucose 153 mg/dL (75-110); Potassium 3.6 mmol/L (3.4-5.0); Sodium 135 mmol/L (137-145)
[2020-05-15 17:52] LABS: Glucose Point of Care 179 (65-105)
[2020-05-15 21:28] LABS: Glucose Point of Care 157 (65-105)
[2020-05-15] MEDS: TAMSULOSIN HCL 0.4 MG CAPSULE PO (21:35)
[2020-05-15] MEDS: FINASTERIDE 5 MG TABLET PO (21:35)
[2020-05-15] MEDS: traZODone HCL 50 MG TABLET 100 MG PO (21:35)
[2020-05-15] MEDS: ALPRAZolam (*CRX) 0.25 MG TABLET PO (21:35)
[2020-05-15] MEDS: SIMVASTATIN 20 MG TABLET PO (21:35)
[2020-05-15] MEDS: LATANOPROST 0.005% OP SOLN 2.5 ML BTL 1 DROP EACH EYE (21:35)
[2020-05-16] VITALS (7 sets, daily range): BP systolic 122–173; BP diastolic 78–97; PULSE 40–87; RESP 18–21; TEMP 36.2–36.7; O2SAT 92–96
[2020-05-16] MEDS: ALBUTEROL SULFATE (*SP) AEROSOL 1 PUFF 2 PUFF INHALATION ×4 (01:49→21:19)
[2020-05-16 07:13] LABS: Alanine Aminotransferase 29 U/L (4-50); Estimated CRCL calculation 31 ml/min; Estimated Glomerular Filt Rate 45
[2020-05-16 08:33] LABS: Glucose Point of Care 225 (65-105)
[2020-05-16] MEDS: INSULIN ASPART (*BKC) 100 UNITS/ML SUB-Q ×3 (08:39→17:46)
[2020-05-16] MEDS: DOCUSATE SODIUM 100 MG CAPSULE PO ×2 (08:42→17:46)
[2020-05-16] MEDS: DEXAMETHASONE SOD PHOS INJ 4 MG/ML VIAL 6 MG IV PUSH (08:42)
[2020-05-16] MEDS: METOPROLOL SUCCINATE EXT REL 50 MG TABCR PO (08:43)
[2020-05-16] MEDS: ENOXAPARIN 30 MG/0.3 ML SYRINGE SUB-Q (08:43)
[2020-05-16] MEDS: PANTOPRAZOLE 40 MG TABLET PO (08:43)
[2020-05-16] MEDS: REMDESIVIR 100 MG/NS 250 ML 100 MG/250 ML BAG 250 MG IVPB (10:45)
[2020-05-16 12:39] LABS: Glucose Point of Care 118 (65-105)
--- NOTE | 2020-05-16 13:45 | PM.IMPN ---
Progress Note: A&P Assessment and Plan (1) Chronic obstructive pulmonary disease, unspecified: Code(s): J44.9 - Chronic obstructive pulmonary disease, unspecified Status: Acute Assessment and Plan: On breathing treatments. PT/OT (2) Gastro-esophageal reflux disease without esophagitis: Code(s): K21.9 - Gastro-esophageal reflux disease without esophagitis Status: Acute Assessment and Plan: Stable PPI (3) Chronic kidney disease, stage 3 (moderate): Code(s): N18.3 - Chronic kidney disease, stage 3 (moderate) Status: Acute Assessment and Plan: Will check BMP Continue to monitor I/O's (4) Acute on chronic renal failure: Code(s): N17.9 - Acute kidney failure, unspecified; N18.9 - Chronic kidney disease, unspecified Status: Acute Assessment and Plan: Will obtain a BMP (5) Pneumonia due to COVID-19 virus: Code(s): U07.1 - COVID-19; J12.82 - Pneumonia due to coronavirus disease 2018 Status: Acute Assessment and Plan: Receiving Remdesivir/Dexamethasone (6) Acute hypoxemic respiratory failure: Code(s): J96.01 - Acute respiratory failure with hypoxia Status: Acute Assessment and Plan: On 1 L of O2 (7) Nonrheumatic aortic (valve) stenosis: Code(s): I35.0 - Nonrheumatic aortic (valve) stenosis Status: Acute Assessment and Plan: Caution with fluids Subjective Date/time seen: 05/16/20 13:45 States that he feels better. Review of Systems Review of Systems: Narrative: Sitting having breakfast. Constitutional: Constitutional: Reports poor appetite ENT: Comments: no sore throat. Cardiovascular: Comments: no chest pain. Respiratory: Comments: non productive mild cough. Gastrointestinal: Comments: no n/v/abdominal pain. Musculoskeletal: Comments: no joint enlargement Integumentary/Breasts: Comments: No rashes. Neurologic: Comments: no sensory motor deficit. Exam Narrative: Exam Narrative: Sitting in chair. Const: General: comfortable, no acute distress, alert, awake and Physically active Nutritional Appearance: thin Orientation/consciousness: patient oriented x3 Limitations: no limitations HENMT: Head: normal to inspection and normocephalic General nose exam: Normal external nose present Face and sinus: normal facial exam Eyes: General: appearance normal, both eyes and all related structures Pupils: Equal, round and reactive pupils present EOM: EOMs intact bilaterally Neck: Neck: no lymphadenopathy, supple and no JVD Lymphatic: no lymphadenopathy noted Resp: Auscultation: clear to auscultation bilaterally Cardio: Jugular venous distension: no JVD Rate: regular rate Rhythm: regular rhythm Skin: General skin exam: normal color Lesions: no lesions Wounds: no wounds Neuro: Cranial nerves: Yes CN's II-XII intact bilaterally and Yes Equal, round and reactive pupils present Cognition (Neuro): normal cognition Speech: normal speech Gait exam (Neuro): Normal gait present Motor exam (neuro): 5/5 motor strength present throughout Extrem: General: full ROM, no joint enlargement and no pedal edema Objective Data Vital Signs Vital Signs: Vital Signs - 24 hr 05/15/20 16:00 05/15/20 17:52 05/15/20 20:55 Temperature 97.4 F L Pulse Rate 91 93 Respiratory Rate 18 20 Blood Pressure 135/80 Pulse Oximetry 96 91 97 05/15/20 21:34 05/16/20 01:08 05/16/20 06:09 Temperature 98.9 F 97.6 F 98.1 F Pulse Rate 93 40 L 87 Respiratory Rate 22 H 20 21 H Blood Pressure 163/86 H 141/97 H 122/86 Pulse Oximetry 98 93 95 05/16/20 08:00 05/16/20 08:43 Temperature 97.9 F Pulse Rate 79 78 Respiratory Rate 20 Blood Pressure 130/89 Pulse Oximetry 92 Intake/Output Intake/Output: Intake & Output 05/13/20 05/14/20 05/15/20 05/16/20 23:59 23:59 23:59 23:59 Intake Total 1140 2170 810 590 Output Total 1225 100 450 500 Balance -85 2070 360 90 Meds/Results
[2020-05-16 15:54] LABS: Basophils Percent Auto 0.2 % (0.2-1.2); Hematocrit 40.9 % (42.0-52.0); Hemoglobin 13.5 g/dL (14.0-18.0); Immature Granulocyte Absolute 0.11 K/mm3 (0.00-0.031); Lymphocytes Absolute Auto 0.25 K/mm3 (0.9-3.2); Lymphocytes Percent Auto 2.2 % (18.3-44.2); Mean Corpuscular Hemoglobin 32.6 pg (26-34); Mean Corpuscular Volume 98.8 fl (80-100); Mean Platelet Volume 9.2 fl (7.4-10.4); Monocytes Absolute Auto 0.2 K/mm3 (0.1-0.6); Neutrophils Absolute Auto 10.6 K/mm3 (1.3-6.7); Neutrophils Percent Auto 94.6 % (45.5-73.1); Platelet Count Result 206 k/mm3 (150-375); Red Blood Count 4.14 M/mm3 (4.6-6.20); White Blood Count 11.2 K/mm3 (4.5-10.0)
[2020-05-16 16:05] LABS: Anion Gap 8 mmol/L (8-16); Blood Urea Nitrogen 48 mg/dL (9-20); Calcium 8.8 mg/dL (8.4-10.2); Carbon Dioxide 34 mmol/L (22-30); Chloride 98 mmol/L (98-107); Estimated CRCL calculation 31 ml/min; Estimated Glomerular Filt Rate 45; Glucose 101 mg/dL (75-110); Potassium 4.1 mmol/L (3.4-5.0); Sodium 140 mmol/L (137-145)
[2020-05-16 20:25] LABS: Glucose Point of Care 157 (65-105)
[2020-05-16] MEDS: ALPRAZolam (*CRX) 0.25 MG TABLET PO (21:17)
[2020-05-16] MEDS: TAMSULOSIN HCL 0.4 MG CAPSULE PO (21:18)
[2020-05-16] MEDS: LATANOPROST 0.005% OP SOLN 2.5 ML BTL 1 DROP EACH EYE (21:18)
[2020-05-16] MEDS: SIMVASTATIN 20 MG TABLET PO (21:18)
[2020-05-16] MEDS: traZODone HCL 50 MG TABLET 100 MG PO (21:18)
[2020-05-16] MEDS: FINASTERIDE 5 MG TABLET PO (21:19)
[2020-05-16 21:59] LABS: Glucose Point of Care 88 (65-105)
[2020-05-17] VITALS: BP 160/91; PULSE 85; RESP 20; TEMP 36.7; O2SAT 96
[2020-05-17 04:00] VITALS: BP 168/79; PULSE 83; RESP 20; TEMP 36.4; O2SAT 93
[2020-05-17 06:59] LABS: Alanine Aminotransferase 38 U/L (4-50); Estimated CRCL calculation 39 ml/min; Estimated Glomerular Filt Rate 58
[2020-05-17 08:00] VITALS: BP 145/74; PULSE 83; RESP 22; TEMP 36.5; O2SAT 92; O2SAT 93
[2020-05-17 09:05] LABS: Glucose Point of Care 164 (65-105)
[2020-05-17] MEDS: INSULIN ASPART (*BKC) 100 UNITS/ML SUB-Q ×2 (09:54→12:51)
[2020-05-17] MEDS: ALBUTEROL SULFATE (*SP) AEROSOL 1 PUFF 2 PUFF INHALATION ×2 (09:54→14:01)
[2020-05-17] MEDS: DEXAMETHASONE SOD PHOS INJ 4 MG/ML VIAL 6 MG IV PUSH (09:55)
[2020-05-17 09:56] VITALS: PULSE 83
[2020-05-17] MEDS: ENOXAPARIN 30 MG/0.3 ML SYRINGE SUB-Q (09:56)
[2020-05-17] MEDS: METOPROLOL SUCCINATE EXT REL 50 MG TABCR PO (09:56)
[2020-05-17] MEDS: DOCUSATE SODIUM 100 MG CAPSULE PO (09:56)
[2020-05-17] MEDS: PANTOPRAZOLE 40 MG TABLET PO (09:56)
[2020-05-17] MEDS: LORATADINE 5 MG TABLET PO (09:56)
[2020-05-17] MEDS: REMDESIVIR 100 MG/NS 250 ML 100 MG/250 ML BAG 250 MG IVPB (10:43)
--- NOTE | 2020-05-17 11:01 | PCPTNOTE ---
Patient refused treatment this session due to fatigue. Attempted to see patient at 10:25, however patient declined therapy due to increased fatigue. Patient refused exercises and ambulation at this time. Will attempt to see patient again as appropriate. Mirian Boogie, WAFER SUBSTRATE TESTER
[2020-05-17 12:34] LABS: Glucose Point of Care 215 (65-105)
[2020-05-17 14:00] VITALS: BP 117/80; PULSE 86; RESP 20; TEMP 36.5; O2SAT 92
--- NOTE | 2020-05-17 14:28 | PM.DS ---
DS: Admitting Diagnosis Admitting Diagnosis Admitting Diagnosis: Chief Complaint: shortness of breath Narrative: This is an 84 year old c male with T2DM, hyperlipidemia, glaucoma, and GERD who presented to the hospital with ongoing generalized weakness, diarrhea, and shortness of breath for over one week duration. He was diagnosed with COVID-19 last week. He denies any chest pain, shortness of breath, abdominal pain, nausea, vomiting, fever or chills. Patient experienced significant shortness of breath and EMS was called out and found him saturating around 86% and his blood sugar was 56. He was placed on oxygen and given dextrose. In the ER tonight the patient was evaluated and found to be hypoxemic on ABG. Routine labs demonstrated mild acute renal failure. CTA Chest revealed a moderate amount of groundglass airspace disease and right hilar adenopathy. Anterior mediastinal nodule. The patient overall is a very poor historian and has no other complaints. 1) Acute hypoxemic respiratory failure: Code(s): J96.01 - Acute respiratory failure with hypoxia Status: Acute Assessment and Plan: Admit to IMU, telemetry, Continue oxygen supplementation, Continuous pulse oximetry. Wean off of oxygen when possible. (2) Pneumonia due to COVID-19 virus: Code(s): U07.1 - COVID-19; J12.82 - Pneumonia due to coronavirus disease 2019 Status: Acute Assessment and Plan: Continue droplet isolation. Continue oxygen supplementation. Dexamethasone IV. Continue bronchodilators. Supportive care. (3) Hypoglycemia: Code(s): E16.2 - Hypoglycemia, unspecified Status: Acute Assessment and Plan: Hypoglycemic protocol. (4) Acute on chronic renal failure: Qualifiers: Acute renal failure type: unspecified Chronic kidney disease stage: stage 3 (moderate) Chronic kidney disease stage 3 subtype: unspecified whether 3a or 3b Qualified Code(s): N17.9 - Acute kidney failure, unspecified; N18.30 - Chronic kidney disease, stage 3 unspecified Code(s): N17.9 - Acute kidney failure, unspecified; N18.9 - Chronic kidney disease, unspecified Status: Acute Assessment and Plan: Likely secondary to poor PO intake of fluids. Continue light IV hydration. Monitor renal function and urine output. Avoid nephrotoxic agents. (5) Chronic obstructive pulmonary disease, unspecified: Qualifiers: COPD type: unspecified COPD Qualified Code(s): J44.9 - Chronic obstructive pulmonary disease, unspecified Code(s): J44.9 - Chronic obstructive pulmonary disease, unspecified Status: Chronic (6) Irritable bowel syndrome: Qualifiers: Irritable bowel syndrome type: unspecified Qualified Code(s): K58.9 - Irritable bowel syndrome without diarrhea Code(s): K58.9 - Irritable bowel syndrome without diarrhea Status: Chronic Assessment and Plan: Continue IV fluids. (7) Gastro-esophageal reflux disease without esophagitis: Code(s): K21.9 - Gastro-esophageal reflux disease without esophagitis Status: Chronic Assessment and Plan: Continue omeprazole. (8) Major depressive disorder, recurrent, moderate: Code(s): F33.1 - Major depressive disorder, recurrent, moderate Status: Chronic Assessment and Plan: Continue trazodone. DS: Discharge Diagnosis Discharge Diagnosis (1) Diarrhea: Qualifiers: Diarrhea type: unspecified type Qualified Code(s): R19.7 - Diarrhea, unspecified Code(s): R19.7 - Diarrhea, unspecified Status: Acute (2) Acute hypoxemic respiratory failure: Code(s): J96.01 - Acute respiratory failure with hypoxia Status: Acute (3) Pneumonia due to 2019-nCoV: Code(s): U07.1 - COVID-19; J12.82 - Pneumonia due to coronavirus disease 2019 Status: Acute (4) Chronic obstructive pulmonary disease, unspecified: Qualifiers: COPD type: unspecified COPD Qualified Code(s): J44.9 -
== END 2020-05-17 15:45 | DRG 177 ==
LOC: ANHED 19:58 → ANHIMU 22:55 → ANH3MEDSUR 05-17 15:02 → ANHIMU 05-20 14:27
PROVIDERS: Admitting Provider Family Medicine; Emergency Provider Emergency Medicine; PCP Family Medicine; Visit Provider Internal Medicine
DX: U07.1 COVID-19 (principal); J12.82 Pneumonia due to coronavirus disease 2019; J96.01 Acute respiratory failure with hypoxia; N17.9 Acute kidney failure, unspecified; F33.9 Major depressive disorder, recurrent, unspecified; E11.22 Type 2 diabetes mellitus with diabetic chronic kidney disease; N18.30 Chronic kidney disease, stage 3 unspecified; I71.9 Aortic aneurysm of unspecified site, without rupture; K58.9 Irritable bowel syndrome, unspecified; K21.9 Gastro-esophageal reflux disease without esophagitis; J44.9 Chronic obstructive pulmonary disease, unspecified; H40.9 Unspecified glaucoma; I35.0 Nonrheumatic aortic (valve) stenosis
CPT/HCPCS: 36415; 36600; 71275; 80048; 80053; 82375; 82565; 82805; 83050; 83735; 84460; 85025; 85055; 85380; 93005; 94640; 96361; 96372; 96374; 96376; 97110; 97116; 97161; 97165; 97530; 97535; 99291; A9270; G0378; J0456; J0696; J1100; J1650; J1815; J7030; J7042; J7120; Q9967

== ENCOUNTER 2020-05-20 20:12 | Emergency (ER) | payer MEDICARE, SELFPAY ==
[2020-05-20] VITALS (7 sets, daily range): BP systolic 161–197; BP diastolic 86–95; PULSE 73–86; RESP 16–25; TEMP 36.2; O2SAT 93–98
--- NOTE | ~2020-05-20 | CT_ITS ---
EXAMINATION: CTA chest PE protocol DATE: 05/20/2020 23:41 INDICATION: Hypoxia. Elevated d-dimer. COVID positive. TECHNIQUE: Computed tomography (CT) pulmonary angiogram of the chest was performed with 100 mL Omnipa que-350 intravenous contrast. Additional 3D reconstructions utilizing coronal maximum intensity proje ction (MIP) were performed. Automated exposure control and iterative reconstruction technique were em ployed. The dose-length product was 478.07 mGy-cm. COMPARISON: None FINDINGS: Good contrast opacification of the pulmonary arteries. There is moderate streak artifact from dense c ontrast in the superior vena cava and right atrium. Mild scattered respiratory motion artifact. Overa ll this mildly decreases sensitivity in some of the smaller subsegmental pulmonary arteries. No pulmo nary embolism. Moderate emphysema. Again seen are scattered bilateral peripheral predominant groundgl ass opacities and a few linear/bandlike opacities with volume loss scattered throughout both lungs co nsistent with COVID pneumonia. Shifting pattern of disease with some regions demonstrating improvemen t most prominently in the right lower lobe and with some regions demonstrating interval worsening mos t prominent at the basilar left lower lobe and posterior lingula. Overall the total disease burden ap pears relatively similar. No pleural effusion or pneumothorax. Heart size is normal. Atherosclerotic coronary artery calcification. Aortic valve calcific location. Ectatic ascending thoracic aorta measuring up to 3.9 cm in maximal diameter. Atherosclerotic disease along the more distal aorta with no dissection. Cephalad most aspect of an aortic endoluminal stent g raft is seen at the level of the renal arteries. There appears be moderate 50-70% stenosis at the [place] of the left renal artery. Unchanged mild right hilar lymphadenopathy which is likely reactive. Ca lcified left hilar and mediastinal lymph nodes consistent with old granulomatous disease. No interval change in a 1.8 x 1.6 cm soft tissue density nodule in the anterior mediastinum. Bilateral gynecomas tia. Numerous hepatic and splenic desiccation consistent with old granulomatous disease. High attenua tion sludge versus gallstones in the dependent aspect of the gallbladder which is shifted in position since the prior study. A couple right renal cysts the larger measuring approximately 12 mm. Severe l ower cervical spondylosis. There are bridging osteophytes at multiple levels in the thoracic spine co nsistent with diffuse idiopathic skeletal hyperostosis (DISH). IMPRESSION: 1. No pulmonary embolism. 2. Shifting pattern of moderate amount of scattered peripheral predominant groundglass and peripheral predominant airspace disease consistent with COVID pneumonia with regions of improvement and regions of worsening but overall relatively similar degree of disease burden. 3. Right hilar lymphadenopathy and 1.8 x 1.6 cm anterior mediastinal nodule. This could be reactive l ymphadenopathy although differential would include lymphoma, thymic malignancy or germ cell tumor. Th is might be amenable to percutaneous CT-guided biopsy which could be considered following significant improvement in patient's underlying lung disease which currently would present an undue risk of gisella strophic decompensation in the setting of an iatrogenic pneumothorax. Alternatively could consider co ntinued monitoring with short interval follow-up imaging in a few months. 4. Moderate emphysema. Reviewed, dictated and finalized at location A. ING ACID DUMPER IMPRESSION: 1. No pulmonary embolism. 2. Shifting pattern of moderate amount of scattered peripheral predominant grou ndglass and peripheral predominant airspace disease consistent with COVID pneum onia with regions of improvement
--- NOTE | 2020-05-20 20:20 | ECG_ITS ---
Measurements Intervals [place] Rate: 84 P: 73 [place]: 138 QRS: -17 QRSD: 127 T: 117 QT: 422 QTc: 499 Interpretive Statements SINUS RHYTHM INTRAVENTRICULAR CONDUCTION DELAY DELAYED PRECORDIAL R/S TRANSITION LEFT VENTRICULAR HYPERTROPHY AND ST-T CHANGE BASELINE ARTIFACT- I, II, AVR, AVL, AVF, V1-V6 BORDERLINE ECG Electronically Signed On 05-27-2020 12:23:32 TELEGRAPHIC SERVICE DISPATCHER by Nick Lopez D.O.
--- NOTE | 2020-05-20 20:35 | ED.RECABL ---
HPI - Recheck/Abnormal Lab/Rx General Chief Complaint: Recheck/Abnormal Lab/Rx Stated Complaint: ab labs, not feeling well, covid + History of Present Illness HPI narrative: 84 yo male w/ h/o COPD, HTN, DM, BPH, CKD, COVID-19, dementia brought in by EMS from shelter for abnormal labs. He was diagnosed with COVID-19 on 05/03. He sebsequently spent 5 days in the hospital for respiratory failure and was discharged on 05/17. He had follow-up labs done today and was sent in due to concern about the results. He had elevated BUN and creatinine, which actually appear to be baseline. He had a D-dimer of 19, it is unclear why this was done. Apparently he has had poor PO intake as well. He was noted to be mildly hypoxic on RA, but he is reportedly on O2 PRN at baseline. He denies any cmplaints at this time. History limited by dementia. Related Data Home Medications Medication Instructions Recorded Confirmed triamcinolone acetonide 0.1 % 1 applic TOPICAL QID PRN 03/19/19 05/13/20 topical cream cetirizine 10 mg tablet 5 mg PO DAILY PRN 09/05/19 05/13/20 docusate sodium 100 mg tablet 100 mg PO BID 09/05/19 05/13/20 finasteride 5 mg PO HS 05/13/20 05/13/20 ketoconazole 1 applic TOPICAL DAILY PRN 05/13/20 05/13/20 metoprolol succinate 50 mg PO DAILY 05/13/20 05/13/20 tamsulosin [Flomax] 0.4 mg PO HS 05/13/20 05/13/20 trazodone 100 mg PO HS 05/13/20 05/13/20 ascorbic acid (vitamin C) 1,000 DAILY 05/20/20 atorvastatin 10 DAILY 05/20/20 cholecalciferol (vitamin D3) 1,000 unit DAILY 05/20/20 insulin lispro unit SUBCUT 05/20/20 nystatin 100,000 unit PO QID 05/20/20 zinc 50 mg PO BID 05/20/20 Allergies Allergy/AdvReac Type Severity Reaction Status Date / Time diclofenac Allergy Unknown unknown Verified 05/20/20 20:37 lisinopril Allergy Unknown cough Verified 05/20/20 20:37 Sulfa (Sulfonamide Allergy Unknown Pt does Verified 05/20/20 20:37 Antibiotics) not remember reaction metronidazole AdvReac Severe DIARRHEA Verified 05/20/20 20:37 Review of Systems Review of Systems: ROS unobtainable: Yes unobtainable due to mental status PMFSH Past Medical History Medical History Achalasia 2013 Aortic aneurysm of unspecified site, without rupture BMI 26.0-26.9,adult Chronic kidney disease, stage 3 (moderate) Chronic obstructive pulmonary disease, unspecified Diabetes mellitus Gastro-esophageal reflux disease without esophagitis Irritable bowel syndrome Major depressive disorder, recurrent, moderate Surgical History Surgical History H/O hernia repair 06/07/2010 History of colonoscopy 09/05/2013 History of esophageal surgery Heller myotomy with gastric wrap, 02/11/2014 Social History Social History Smoking status: Never smoker Alcohol intake: never Substance use: never Gender identity (if verbalized by the patient): Male Spiritual care concerns: No Exam Const: General: no acute distress and alert Nutritional Appearance: thin HENMT: Mouth: Yes dry mucous membranes Eyes: Pupils: Equal, round and reactive pupils present Resp: Effort & Inspection: normal respiratory effort Auscultation: wheezes Cardio: Rate: regular rate Rhythm: regular rhythm GI: Inspection: non-distended GI Palp: Yes Soft to palpation and No Tenderness to palpation present (GI) Skin: General skin exam: normal color Neuro: General: moves all extremities and no focal motor deficits Speech: normal speech Extrem: General: no edema Course Vital Signs Vital signs: Vital Signs Temperature 36.2 C L 05/20/20 20:31 Pulse Rate 73 05/20/20 20:31 Respiratory Rate 18 05/20/20 20:31 Blood Pressure 174/87 H 05/20/20 20:31 Pulse Oximetry 97 05/20/20 20:31 Temperature 36.2 C L 05/20/20 20:31 Pulse Rate 81 05/21/20 00:23 Respiratory Rate 14 0
[2020-05-20 20:46] LABS: Basophils Percent Auto 0.2 % (0.2-1.2); Hematocrit 39.1 % (42.0-52.0); Hemoglobin 12.7 g/dL (14.0-18.0); Immature Granulocyte Absolute 0.11 K/mm3 (0.00-0.031); Lymphocytes Absolute Auto 0.31 K/mm3 (0.9-3.2); Lymphocytes Percent Auto 5.7 % (18.3-44.2); Mean Corpuscular HGB Conc 32.5 g/dl (32-36); Mean Corpuscular Hemoglobin 32.7 pg (26-34); Mean Corpuscular Volume 100.8 fl (80-100); Mean Platelet Volume 10.2 fl (7.4-10.4); Monocytes Absolute Auto 0.2 K/mm3 (0.1-0.6); Monocytes Percent Auto 3.1 % (2.6-8.5); Neutrophils Absolute Auto 4.9 K/mm3 (1.3-6.7); Platelet Count Result 156 k/mm3 (150-375); Red Blood Count 3.88 M/mm3 (4.6-6.20); Red Cell Distribution Width 13.3 % (11.5-14.5); White Blood Count 5.5 K/mm3 (4.5-10.0)
[2020-05-20] MEDS: SODIUM CHLORIDE 0.9% IV 500 ML 999 ML IV CONT (20:47)
[2020-05-20 20:56] LABS: INR 1.2; Prothrombin Time 15.3 Seconds (11.1-14.7)
[2020-05-20 20:57] LABS: Partial Thromboplastin Time 28.9 SECONDS (22.3-36.8)
[2020-05-20 20:59] LABS: Alanine Aminotransferase 39 U/L (4-50); Albumin Level 3.1 g/dL (3.5-5.1); Alkaline Phosphatase 71 U/L (38-126); Anion Gap 2 mmol/L (8-16); Aspartate Amino Transferase 42 U/L (17-59); Bilirubin,Total 0.9 mg/dL (0.2-1.3); Blood Urea Nitrogen 51 mg/dL (9-20); Calcium 8.9 mg/dL (8.4-10.2); Carbon Dioxide 33 mmol/L (22-30); Chloride 107 mmol/L (98-107); Estimated Glomerular Filt Rate 53; Glucose 236 mg/dL (75-110); Sodium 142 mmol/L (137-145)
--- NOTE | 2020-05-20 21:03 | PC.NURSE ---
genetic technologist to bedside. Urinal placed for patient. attempting to get urine specimen.
[2020-05-21 00:23] VITALS: BP 154/77; PULSE 81; RESP 14; O2SAT 97
[2020-05-21 00:39] LABS: Add Urine Microscopic? YES; Appearance Urine Clear (Clear); Bilirubin Urine Negative (Negative); Blood Urine 1+ (Negative); Color Urine Yellow (Yellow); Glucose Urine UA Negative (Negative); Ketones Urine Negative (Negative); Leukocyte Esterase Ur Negative LEU/UL (Negative); Mucus Urine Rare /lpf; Nitrate Urine Negative (Negative); Protein Urine 1+ mg/dL (Negative); RBC Urine 0-2 /hpf (0-2); Urobilinogen Urine Negative mg/dL (<2.0); WBC Urine 0-3 /hpf
[2020-05-21 00:40] LABS: Specific Grav Ur 1.044 (1.001-1.035)
--- NOTE | 2020-05-21 02:37 | PC.NURSE ---
ETA for EMS now [id number]
[2020-05-21 03:26] VITALS: BP 166/80; PULSE 78; RESP 16; TEMP 36.4; O2SAT 97
== END 2020-05-21 03:29 ==
PROVIDERS: Emergency Provider Emergency Medicine; PCP Family Medicine
DX: U07.1 COVID-19 (principal); J12.82 Pneumonia due to coronavirus disease 2019; E86.0 Dehydration; N18.30 Chronic kidney disease, stage 3 unspecified; E11.22 Type 2 diabetes mellitus with diabetic chronic kidney disease; I12.9 Hypertensive chronic kidney disease with stage 1 through stage 4 chronic kidney disease, or unspecified chronic kidney disease; Z79.4 Long term (current) use of insulin; J43.9 Emphysema, unspecified; K21.9 Gastro-esophageal reflux disease without esophagitis; K58.9 Irritable bowel syndrome, unspecified; F32.9 Major depressive disorder, single episode, unspecified
CPT/HCPCS: 36415; 51701; 71275; 80053; 81001; 85025; 85610; 85730; 93005; 96360; 99284; J7040; Q9967

== ENCOUNTER → 2020-06-24 12:45 | Outpatient (CLI) | payer MEDICARE, SELFPAY ==
--- NOTE | ~2020-06-24 | CT_ITS ---
EXAMINATION: CT diagnostic chest wo con DATE: 06/24/2020 13:08 INDICATION: Thoracic lymphadenopathy TECHNIQUE: Computed tomography (CT) of the chest was performed without intravenous contrast. The dose -length product (DLP) was 184.50 mGy-cm. Automated exposure control and iterative reconstruction tech nique were employed. COMPARISON: 05/20/2020, 05/12/2020, 04/09/2015, 11/08/2010 FINDINGS: There is moderate emphysema. Patchy groundglass opacities of the lungs, worst in the right upper lobe, persist but have improved. Several new discrete nodules have developed in the right middl e lobe. The largest measures 8 mm. Similar appearing nodules measuring up to 1.3 cm in the left upper lobe are also new since the recent comparison examination. There is no pleural effusion or pneumotho rax. There is a 2.1 x 1.5 cm soft tissue density of the anterior mediastinum which is not significant ly changed. When compared to prior abdominal CT examinations, this also appears relatively stable sin ce 2010. Although difficult to evaluate in the absence of intravenous contrast, there appears to be m ild persistent right hilar lymphadenopathy. The heart size is normal. There is calcified coronary art bella atherosclerosis. Moderate bilateral gynecomastia is noted. There are bridging osteophytes at mult iple levels in the spine, consistent with diffuse idiopathic skeletal hyperostosis (DISH). IMPRESSION: 1. Continued interval improvement in patchy groundglass opacities of the lungs, consistent with resol ving COVID 19 pneumonia. 2. Multiple new nodules in the right middle lobe and left upper lobe. Given the short interval betwee n examinations, these are most consistent with infection/inflammation. 3. Soft tissue density of the anterior mediastinum which appears relatively stable since the 2010 com parison. Findings could reflect chronic reactive lymphadenopathy, low-grade neoplasm such as thymoma, or possibly an enteric duplication cyst. Given the relative stability of the mass and its position i n the mediastinum, CT-guided biopsy would likely pose unnecessary risk. Reviewed, dictated and finalized at location A. RUCTOR [employer] TROLLEY AND TAXI IMPRESSION: 1. Continued interval improvement in patchy groundglass opacities of the lungs, consistent with resolving COVID 19 pneumonia. 2. Multiple new nodules in the right middle lobe and left upper lobe. Given the short interval between examinations, these are most consistent with infection/ inflammation. 3. Soft tissue density of the anterior mediastinum which appears relatively sta ble since the 2010 comparison. Findings could reflect chronic reactive lymphade nopathy, low-grade neoplasm such as thymoma, or possibly an enteric duplication cyst. Given the relative stability of the mass and its position in the mediast inum, CT-guided biopsy would likely pose unnecessary risk.
== END ==
PROVIDERS: PCP Family Medicine; Visit Provider Physician Assistant
DX: R59.0 Localized enlarged lymph nodes (principal); U07.1 COVID-19; J12.82 Pneumonia due to coronavirus disease 2019; R91.8 Other nonspecific abnormal finding of lung field
CPT/HCPCS: 71250

== ENCOUNTER → 2020-08-05 12:05 | Outpatient (CLI) | payer MEDICARE, SELFPAY ==
--- NOTE | ~2020-08-05 | XR_ITS ---
XR chest 2V 08/05/2020 12:47 Indication: Localized enlarged lymph nodes Procedure: 2 view chest Comparison: Comparison to multiple prior studies sequentially, with oldest reviewed study dated 06/2012. Findings: Heart size normal. There is a focal spiculated masslike density right upper thorax. Bibasil ar atelectasis. No edema, pleural effusion or pneumothorax. Impression: 1: Spiculated masslike density right upper thorax. Follow-up CT chest recommended. Reviewed, dictated and finalized at location B. Impression: 1: Spiculated masslike density right upper thorax. Follow-up CT chest recommend ed.
== END ==
PROVIDERS: PCP Family Medicine; Visit Provider Physician Assistant
DX: R59.0 Localized enlarged lymph nodes (principal); R92.8 Other abnormal and inconclusive findings on diagnostic imaging of breast
CPT/HCPCS: 71046

== ENCOUNTER → 2020-08-10 12:02 | Outpatient (CLI) | payer MEDICARE, SELFPAY ==
--- NOTE | ~2020-08-10 | CT_ITS ---
EXAMINATION: CT diagnostic chest wo con EXAM DATE: 08/10/2020 12:19 INDICATION: R93.89 - Abnormal findings on diagnostic imaging of other specified body structures. Foll ow up COVID pneumonia. TECHNIQUE: Spiral CT of the chest without contrast. Axial, coronal and sagittal images were reviewe d. Coronal maximum intensity pixel images of chest reviewed. The dose-length product (DLP) for this examination was 203.98 mGy-cm. The exposure was tailored according to patient size (auto mA exposur e control), and iterative reconstruction (ASIR) was used as additional dose reduction technique. Comp arison is made to prior examination from 06/24/2010, and also 11/08/2010. FINDINGS: Previously seen bilateral lung nodules have significantly decreased in size consistent wit h postinfectious residua. There has been improvement in the interlobular septal thickening and inters persed groundglass opacities compared to previous examination. The remaining interlobular septal thic kening is most likely going to be chronic interstitial lung disease. There is mild to moderate emphys carolyn. Soft tissue density anterior mediastinal mass measuring 2.0 cm appears unchanged for 10 years, c ould be thymoma or duplication cyst given stability. There are no pleural or pericardial effusions. Tracheobronchial tree is patent. There is no media stinal, hilar or axillary lymphadenopathy. There is no pneumothorax. Heart normal in size. Ther e is moderate coronary arterial calcification, arterial sclerosis. Poorly calcified gallstones versu s layering debris. Large bridging thoracic endplate osteophytes. There are no osteoblastic or osteol ytic lesions identified. IMPRESSION: 1. Residual mild to moderate chronic interstitial lung disease. 2. Scattered postinfectious residua. 3. Mild to moderate emphysema. 4. Stable anterior mediastinal mass. Reviewed, dictated and finalized at location A.
== END ==
PROVIDERS: PCP Family Medicine; Visit Provider Physician Assistant
DX: R93.89 Abnormal findings on diagnostic imaging of other specified body structures (principal); J43.9 Emphysema, unspecified; R91.8 Other nonspecific abnormal finding of lung field; J84.9 Interstitial pulmonary disease, unspecified
CPT/HCPCS: 71250

== ENCOUNTER 2021-03-18 13:53 | Outpatient (CLI) | payer MEDICARE, SELFPAY ==
--- NOTE | ~2021-03-18 | DEXA_ITS ---
Bone Density Report Name: Jose De Jesus Dennis Age: 85 Sex: Male Ethnicity: White Date of : 1935 Indication: parental hip fracture; prior fracture; Referring Provider: Cadence Baez Study: Bone densitometry was performed. Exam Date: March 18, 2021 Accession number: [id number] Bone Density: Region BMD T-score Z-score Classification AP Spine (L1, L4) 1.535 4.1 5.4 Normal Femoral Neck (Left) 0.787 -1.1 0.6 Osteopenia Total Hip (Left) 1.046 0.1 1.3 Normal Total Hip Bilateral Avg 1.033 0.0 1.3 Normal Femoral Neck (Right) 0.707 -1.6 0.1 Osteopenia Total Hip (Right) 1.018 -0.1 1.2 Normal World Health Organization criteria for BMD impression classify patients as: Normal (T-score at or above -1.0), Osteopenia (T-score between -1.0 and -2.5), or Osteoporosis (T-score at or below -2.5). 10-year Fracture Risk(1): Major Osteoporotic Fracture 23% Hip Fracture 16% Reported Risk Factors: [place] (), Neck BMD=0.707, BMI=25.0, previous fracture, parental fracture (1) FRAX(R) Version 3.08. Fracture probability calculated for an untreated patient. Fracture probability may be lower if the patient has received treatment. Previous Exams: Region Exam Age BMD T-score BMD Change BMD Change Date g/cm2 vs Baseline vs Previous AP Spine(L1, L4) 03/18/2021 85 1.535 4.1 0.059(4.0%)# 0.059(4.0%)# 01/06/2016 80 1.476 3.6 Total Hip(Left) 03/18/2021 85 1.046 0.1 -0.095(-8.4%)# -0.095(-8.4%)# 01/06/2016 80 1.141 0.7 Total Hip(Right) 03/18/2021 85 1.018 -0.1 -0.018(-1.7%)# -0.018(-1.7%)# 01/06/2016 80 1.035 0.0 *Denotes significance at 95% confidence level, LSC for AP Spine = 0.022 g/cm2, LSC for Total Hip = 0.027 g/cm2 Clinical Information Provided by Patient: Has had a low trauma fracture Parent has had a hip fracture Patient maximum height was 67 No regular weight bearing exercise Drinks caffeinated beverages Impression: The patient has low bone mass, based on the Right Femoral Neck T-score. The patient has an estimated ten-year risk of hip fracture of 16% and an estimated ten-year risk of major fracture of 23%, based on the WHO FRAX algorithm. The patient has risk factors, including: parental hip fracture, previous fracture. No significant bone loss was observed. Discussion: BONE DENSITY IS LOW AT ONE OR MORE SKELETAL SITES. THE PATIENT'S BMD AND CLINICAL RISK FACTORS CONTRIBUTE TO THIS PATIENT'S HIGH RISK OF FR
== END 2021-03-18 13:54 | disposition home or self-care (01) ==
LOC: ANHIMG 13:56
PROVIDERS: PCP Family Medicine; Visit Provider Physician Assistant
DX: Z79.899 Other long term (current) drug therapy (principal); M85.89 Other specified disorders of bone density and structure, multiple sites
CPT/HCPCS: 77080

== ENCOUNTER 2021-05-26 13:57 | Outpatient (CLI) | payer MEDICARE, SELFPAY ==
--- NOTE | ~2021-05-26 | CT_ITS ---
EXAMINATION: CT diagnostic chest wo con EXAM DATE: 05/26/2021 14:27 INDICATION: R93.89 - Abnormal findings on diagnostic imaging of other... TECHNIQUE: Spiral CT of the chest without contrast. Axial, coronal and sagittal images of the chest were reviewed. Coronal maximum intensity pixel images of chest reviewed. The dose-length product ( DLP) for this examination was 346.24 mGy-cm. The exposure was tailored according to patient size (au to mA exposure control), and iterative reconstruction (ASIR) was used as additional dose reduction te chnique. Comparison is made to prior examination from 08/10/2020. FINDINGS: There is mild to moderate emphysema. There is anterior mediastinal density measuring 2.1 x 1.3 cm, size unchanged but with density having increased, now at about 100 Hounsfield units. This co uld indicate developing calcification within chronic solid mass, or proteinaceous fluid. Benign histo logy is favored given size stability and appearance but histologic correlation would be confirmatory. Reportedly size not significant changed compared to 2011. There is mild interstitial lung disease, p otentially sequela from COVID 19 pneumonia, with interval improvement in previously seen interspersed groundglass opacities. There is right middle lobe, infrahilar nodule measuring 9 mm, appears unchanged. No spiculations to t his. There are no pleural or pericardial effusions. Tracheobronchial tree is patent. There is no mediastinal, hilar or axillary lymphadenopathy. There is no pneumothorax. Heart normal in size. There is moderate coronary arterial calcification, arterial sclerosis. Upper abdomen is unremarkabl e. Large bridging thoracic endplate osteophytes. There are no osteoblastic or osteolytic lesions id entified. IMPRESSION: 1. Stable right middle lobe nodule (postinfectious residua) and anterior mediastinal mass. 2. Mild interstitial lung disease with continued improvement in groundglass opacities. 3. Mild to moderate emphysema. Reviewed, dictated and finalized at location B. TOR SERVICES INFORMATION ASSISTANT IMPRESSION: 1. Stable right middle lobe nodule (postinfectious residua) and anterior media stinal mass. 2. Mild interstitial lung disease with continued improvement in groundglass op acities. 3. Mild to moderate emphysema.
== END 2021-05-26 13:58 | disposition home or self-care (01) ==
LOC: ANHIMG 14:01
PROVIDERS: PCP Family Medicine; Visit Provider Physician Assistant
DX: R93.89 Abnormal findings on diagnostic imaging of other specified body structures (principal); R91.1 Solitary pulmonary nodule; J84.9 Interstitial pulmonary disease, unspecified; J43.9 Emphysema, unspecified
CPT/HCPCS: 71250

== ENCOUNTER 2021-12-30 13:36 | Outpatient (CLI) | payer MEDICARE, SELFPAY ==
[2021-12-30 15:00] VITALS: PULSE 71; O2SAT 98
[2021-12-30 15:05] VITALS: PULSE 91; O2SAT 95
[2021-12-30 15:15] VITALS: PULSE 79; O2SAT 95
--- NOTE | 2021-12-30 15:47 | HOMEO2EVAL ---
Evaluation was performed at [facility] Home Oxygen Evaluation RC: Home Oxygen (O2) Evaluation Start: 12/30/21 15:45 Freq: Status: Active Protocol: RPE Activity Type Activity Date Activity User E-sign Co-sign Detail Recorded Client Recorded Date Recorded By Document 12/30/21 15:00 DJO [email or web address] 12/30/21 15:47 DJO Document 12/30/21 15:05 DJO [email or web address] 12/30/21 15:47 DJO Document 12/30/21 15:15 [email or web address] [email or web address] 12/30/21 15:47 DJO 12/30/21 12/30/21 12/30/21 15:00 15:05 15:15 Home O2 Evaluation Test Phase Resting Exercise Resting Oxygen Delivery Room Air Room Air Room Air Pulse Oximetry (90-100 %) 98 95 95 Pulse Rate (60-100 beats/min) 71 91 79 Ambulation Distance (feet) 350 Ambulation Distance (meters) 106.67 Home Oxygen Evaluation Comments WALKED WITH CANE, NO HOME O2 NEEDED AT THIS TIME. Treatment Charges O2 Evaluation - Outpatient
--- NOTE | 2021-12-30 15:47 | PCRCNOTE ---
hOME O2 EVAL FAXED TO OFFICE STAFF
--- NOTE | 2021-12-30 16:23 | WPDPFTINT ---
PFT Procedure Performed PFT Procedure Performed Spirometry with Pre/Post Bronchodilator Plethysmography (Lung Vol) Diffusing Cap (DLCO) Flow Vol Loop PFT Interpretation This is a pulmonary function test with pre and post-bronchodilator spirometry, plethysmography and diffusing capacity. The test was performed and results interpreted in accordance with the 2019 and 2005 ATS/ERS Task Force guidelines respectively using the Global Lung Function Initiative-2012 reference equations. Patient demonstrated good effort and cooperation. Reproducibility criteria were met. The quality of the pre bronchodilator spirometry maneuver was Grade C and post bronchodilator spirometry maneuver was Grade A. Findings: Spirometry: There is decreased maximal airflow at low lung volumes with concave expiratory flow tracing. The contour the inspiratory flow tracing is normal. The pre bronchodilator FVC is 2.56 L, 79% predicted. The pre bronchodilator FEV1 is 1.83 L, 76% predicted. The pre bronchodilator FEV1: FVC ratio 72%. The post bronchodilator FVC is 2.91 L, representing a 14% increase. The post bronchodilator FEV1 is 2.03 L, representing a 11% increase. The post bronchodilator FEV1: FVC ratio 70%. Plethysmography: The total lung capacity is 5.33 L, 85% predicted. Functional residual capacity is 3.38 L, 99% predicted. The residual volume is 2.52 L, 100% predicted. Of note the slow vital capacity is 2.79 L. Diffusion capacity: The diffusion capacity unadjusted for hemoglobin and carboxyhemoglobin is 13.5, 64% predicted. The diffusing capacity adjusted for alveolar volume is 3.66, 99% predicted. Impression: The slow vital capacity is greater than forced vital capacity with a mildly concave expiratory tracing and a normal FEV1: FVC ratio with a normal FEV1. This is suggestive of small airways disease. There is significant improvement after inhaling a single dose of albuterol. The lung volumes are normal. The diffusing capacity is normal. There are no prior studies for comparison
== END 2021-12-30 13:37 | disposition home or self-care (01) ==
PROVIDERS: PCP Family Medicine; Visit Provider Internal Medicine Pulmonary Disease
DX: J44.9 Chronic obstructive pulmonary disease, unspecified (principal); R06.00 Dyspnea, unspecified
CPT/HCPCS: 94060; 94618; 94726; 94729

== ENCOUNTER 2022-01-17 10:29 | Outpatient (CLI) | payer MEDICARE, SELFPAY ==
--- NOTE | 2022-01-17 10:36 | ECHO_ITS ---
Patient Info Name: Jose De Jesus Dennis Age: 86 years : 1935 Gender: Male Ht: 66 in Wt: 156 lbs BSA: 1.83 m2 HR: 62 bpm BP: 118 / 67 mmHg Heart Rhythm: Sinus Rhythm Exam Date: 01/17/2022 11:18 AM Exam Location: [facility] Patient Status: Outpatient Admit Date: 01/17/2022 Staff Ordering Physician: Ashok Agarwal PA-C Asset Protection Lead: Bing Jeffrey RDCS Attending Provider: Ashok Agarwal PA-C Referring Physician: Stefano ALFREDO; Exam Type: CA echo doppler color flow Study Info Indications I35.0 - Nonrheumatic aortic (valve) stenosis Complete two-dimensional, color flow and Doppler transthoracic echocardiogram is performed. Summary 1. Complete two-dimensional, color flow and Doppler transthoracic echocardiogram is performed. 2. Left ventricular chamber dimension is normal. 3. Left ventricular systolic function is normal, estimated at 60-65%. 4. There is mild concentric increased left ventricular wall thickness. 5. The left ventricular diastolic function is grade I diastolic dysfunction. 6. There is moderate aortic valve stenosis with a peak velocity of 297 cm/s, mean gradient of 24 mmHg, and aortic valve area of 1.0 cm2. 7. There is mild aortic valve regurgitation. 8. There is mild mitral valve regurgitation. Left Ventricle Left ventricular chamber dimension is normal. Left ventricular systolic function is normal, estimated at 60-65%. There is mild concentric increased left ventricular wall thickness. The left ventricular diastolic function is grade I diastolic dysfunction. Right Ventricle Right ventricular chamber dimension is normal. Right ventricular systolic function is normal. Left Atria Left atrial chamber dimension is normal. Right Atria Right atrial chamber dimension is normal. Aortic Valve The aortic valve is not well visualized. There is moderate aortic valve stenosis with a peak velocity of 297 cm/s, mean gradient of 24 mmHg, and aortic valve area of 1.0 cm2. There is mild aortic valve regurgitation. Pulmonic Valve The pulmonic valve is not well visualized. Mitral Valve The mitral valve has thickened leaflets. There is mild mitral valve regurgitation. The mitral valve annulus is moderately calcified. Tricuspid Valve The tricuspid valve leaflets are normal. There is trace tricuspid valve regurgitation. Unable to estimate PA systolic pressure due to poor spectral resolution of tricuspid regurgitant jet velocity. Pericardium/Pleural The pericardium appears normal. There is no pericardial effusion. Inferior Vena Cava Normal inferior vena cava with >50% collapse upon inspiration consistent with normal right atrial pressure, 5 mmHg. Aorta The aortic root size at the sinus of Valsalva is normal. There is moderate aortic atherosclerosis. Left Ventricular Outflow Tract Name Value Normal LVOT 2D LVOT Diameter 2.0 cm LVOT Doppler LVOT Peak Gradient 5 mmHg LVOT Mean Gradient 3 mmHg LVOT VTI 23 cm LVOT VTI/AV VTI Ratio 0.3 LVOT Stro
== END 2022-01-17 10:30 | disposition home or self-care (01) ==
PROVIDERS: PCP Family Medicine; Visit Provider Physician Assistant
DX: I35.0 Nonrheumatic aortic (valve) stenosis (principal); I08.0 Rheumatic disorders of both mitral and aortic valves
CPT/HCPCS: 93306

== ENCOUNTER 2022-05-21 15:57 | Emergency (ER) | payer MEDICARE, SELFPAY ==
--- NOTE | ~2022-05-21 | CT_ITS ---
EXAMINATION: CT brain wo con DATE: 05/21/2022 17:33 INDICATION: Left facial and arm numbness. TECHNIQUE: Computed tomography (CT) of the head was performed without intravenous contrast. Sagittal and coronal reconstructions were performed. The mA was adjusted according to patient size. Iterative reconstruction technique was employed. The dose-length product was 605.33 mGy-cm. COMPARISON: None FINDINGS: No acute intracranial hemorrhage, acute infarction or abnormal extra axial fluid collection. There is mild scattered white matter hypoattenuation consistent with chronic small vessel ischemic disease. S ymmetric prominence of the sulci consistent with mild age-appropriate diffuse cerebral volume loss. V entricles are normal and symmetric. No mass/mass effect. Changes of bilateral intraocular lens replac ement. The orbits and mastoid air cells are normal. Mucosal thickening the bilateral ethmoid sinuses. IMPRESSION: 1. No acute intracranial process. 2. Age-related changes including mild diffuse volume loss and mild scattered white matter hypoattenua tion consistent with chronic small vessel ischemic disease. Reviewed, dictated and finalized at location A. TLE OPERATOR IMPRESSION: 1. No acute intracranial process. 2. Age-related changes including mild diffuse volume loss and mild scattered wh ite matter hypoattenuation consistent with chronic small vessel ischemic diseas e.
--- NOTE | ~2022-05-21 | XR_ITS ---
EXAMINATION: XR chest 1V DATE: 05/21/2022 17:31 INDICATION: Hypertension. Left-sided numbness. TECHNIQUE: frontal view of the chest was obtained. COMPARISON: Chest radiograph dated 08/05/[address] dated 05/26/2021 FINDINGS: Chronic mild streaky atelectasis/scarring at the left lower lung zone. Increased lucency and some arc hitectural distortion in the left upper lung zone consistent with emphysema better appreciated on carson or CT. No pulmonary edema, pleural effusion or pneumothorax. Heart size is within normal limits for A P technique. Calcified left hilar lymph nodes consistent with old granulomatous disease. There are br idging osteophytes at multiple levels in the spine, consistent with diffuse idiopathic skeletal hyper ostosis (DISH). IMPRESSION: 1. Emphysema with chronic streaky atelectasis/scarring at the left lower lung zone. No acute cardiopu lmonary disease. Reviewed, dictated and finalized at location A. M INSTALLER IMPRESSION: 1. Emphysema with chronic streaky atelectasis/scarring at the left lower lung z one. No acute cardiopulmonary disease.
--- NOTE | ~2022-05-21 | CT_ITS ---
EXAMINATION: CT abdomen pelvis wo con DATE: 05/21/2022 19:05 INDICATION: Left flank pain TECHNIQUE: Computed tomography (CT) of the abdomen and pelvis was performed without intravenous contr ast. Automated exposure control and iterative reconstruction technique were employed. The dose-length product was 309.74 mGy-cm. COMPARISON: 09/13/2015 FINDINGS: Mild discoid atelectasis in the lingula. Bronchial wall thickening and some mucous plugging the right lower lobe. Heart size is normal. Atherosclerotic coronary artery calcific lesions and aortic valve calcification. No pericardial or pleural effusion. A couple tiny splenic calcifications and multiple scattered hepatic calcific lesions consistent with old granulomatous disease. High attenuation sludge versus more likely gallstones layering in the depe ndent aspect of the normal-appearing gallbladder. No intra-axial hepatic biliary ductal dilation. Palomo creas and bilateral adrenal glands are normal. There are bilateral renal cysts the largest measuring 4.2 cm at the right kidney. Mild left renal atrophy. No urolithiasis or hydronephrosis. Moderate amou nt stool scattered throughout the colon. There are few scattered clonic diverticula without adjacent inflammatory stranding to suggest diverticulitis. Small bowel and appendix are normal. There is calcified atherosclerosis of the aorta, splenic, bilateral iliac and proximal femoral arteri es. Interval decrease in size of a now stented fusiform infrarenal abdominal aortic aneurysm measuri ng up to 4.1 x 4.0 cm. The stent begins at the level of the renal arteries and extends to the bifurca tion of the bilateral common iliac arteries. Bladder is normal. No free intraperitoneal gas or fluid. No pathologically enlarged abdominal or pelvic lymphadenopathy. Mild lumbar dextrocurvature with sev ere spondylosis. Prominent hypertrophic osteophyte at the left T10-T11 facet joint results in moderat e central canal stenosis at this level. There are bridging osteophytes at multiple levels in the spin e, consistent with diffuse idiopathic skeletal hyperostosis (DISH). IMPRESSION: 1. No evident urolithiasis or acute intra-abdominal/pelvic process. 2. Dependent high attenuation the gallbladder and favor small gallstones over sludge. 3. Bronchial wall thickening or mucous plugging in the right lower lobe. 4. Decrease in size of a previously 4.5 cm currently 4.1 cm fusiform abdominal aortic aneurysm post a ortobiiliac endoluminal stent grafting. Reviewed, dictated and finalized at location A. REFINISHER IMPRESSION: 1. No evident urolithiasis or acute intra-abdominal/pelvic process. 2. Dependent high attenuation the gallbladder and favor small gallstones over s ludge. 3. Bronchial wall thickening or mucous plugging in the right lower lobe. 4. Decrease in size of a previously 4.5 cm currently 4.1 cm fusiform abdominal aortic aneurysm post aortobiiliac endoluminal stent grafting.
[2022-05-21 16:13] VITALS: BP 118/48; PULSE 73; RESP 20; TEMP 36.4; O2SAT 95
[2022-05-21 16:14] LABS: Glucose Point of Care 97 mg/dl (65-105)
--- NOTE | 2022-05-21 16:16 | ECG_ITS ---
Measurements Intervals [place] Rate: 71 P: 70 NE: 200 QRS: -45 QRSD: 131 T: 80 QT: 421 QTc: 460 Interpretive Statements SINUS RHYTHM LEFT AXIS DEVIATION INTRAVENTRICULAR CONDUCTION DELAY LEFT VENTRICULAR HYPERTROPHY AND ST-T CHANGE BORDERLINE ST-T WAVE ABNORMALITY- HIGH LATERAL LEADS BORDERLINE ECG COMPARED TO ECG 05/20/2020 20:20:48 LEFT-AXIS DEVIATION NOW PRESENT Electronically Signed On 05-22-2022 7:51:05 DISABILITIES SERVICES OFFICER by Nick Lopez D.O.
[2022-05-21 16:41] VITALS: BP 165/86; PULSE 75; RESP 22; O2SAT 97
--- NOTE | 2022-05-21 16:48 | PC.NURSE ---
pt unsure of allergies
[2022-05-21 16:55] LABS: Basophils Percent Auto 0.5 % (0.2-1.2); Eosinophils Absolute Auto 0.2 K/mm3 (0-0.3); Eosinophils Percent Auto 2.8 % (0-4.4); Hematocrit 42.8 % (42.0-52.0); Hemoglobin 13.9 g/dL (14.0-18.0); Immature Granulocyte Absolute 0.07 K/mm3 (0.00-0.031); Immature Granulocyte Percent A 0.9 % (0-0.5); Lymphocytes Absolute Auto 1.83 K/mm3 (0.9-3.2); Lymphocytes Percent Auto 22.4 % (18.3-44.2); Mean Corpuscular HGB Conc 32.5 g/dl (32-36); Mean Corpuscular Hemoglobin 32.9 pg (26-34); Mean Corpuscular Volume 101.2 fl (80-100); Mean Platelet Volume 8.5 fl (7.4-10.4); Monocytes Absolute Auto 0.7 K/mm3 (0.1-0.6); Monocytes Percent Auto 9.1 % (2.6-8.5); Neutrophils Absolute Auto 5.3 K/mm3 (1.3-6.7); Neutrophils Percent Auto 64.3 % (45.5-73.1); Platelet Count Result 173 k/mm3 (150-375); Red Blood Count 4.23 M/mm3 (4.6-6.20); Red Cell Distribution Width 13.8 % (11.5-14.5); White Blood Count 8.2 K/mm3 (4.5-10.0)
[2022-05-21 17:08] LABS: Prothrombin Time 12.7 Seconds (11.1-14.7)
[2022-05-21 17:09] LABS: Partial Thromboplastin Time 39.6 SECONDS (22.3-36.8)
[2022-05-21 17:10] LABS: Lipase 64 U/L (23-300)
[2022-05-21 17:15] LABS: Bilirubin Urine Negative (Negative); Blood Urine Negative (Negative); Color Urine Yellow (Yellow); Glucose Urine UA Negative (Negative); Ketones Urine Negative (Negative); Leukocyte Esterase Ur Negative LEU/UL (Negative); Nitrate Urine Negative (Negative); Protein Urine Negative (Negative); Urobilinogen Urine 0.2 mg/dL (<2.0); pH Urine 6.5 (5.0-9.0)
[2022-05-21 17:16] LABS: Appearance Urine Slightly Cloudy (Clear)
[2022-05-21 17:17] LABS: Alanine Aminotransferase 19 U/L (6-50); Albumin Level 3.9 g/dL (3.5-5.1); Alkaline Phosphatase 81 U/L (38-126); Anion Gap 4 mmol/L (8-16); Aspartate Amino Transferase 23 U/L (17-59); Bilirubin,Total 0.4 mg/dL (0.2-1.3); Blood Urea Nitrogen 41 mg/dL (9-20); Calcium 8.8 mg/dL (8.4-10.2); Carbon Dioxide 30 mmol/L (22-30); Chloride 103 mmol/L (98-107); Estimated CRCL calculation 26 ml/min; Estimated Glomerular Filt Rate 38; Glucose 89 mg/dL (65-110); Potassium 4.4 mmol/L (3.4-5.0); Sodium 137 mmol/L (137-145)
[2022-05-21 17:22] LABS: Mucus Urine Rare /lpf; RBC Urine 0-2 /hpf (0-2); WBC Urine 0-3 /hpf
[2022-05-21 17:23] LABS: Add Urine Microscopic? YES
[2022-05-21 17:29] LABS: Troponin I < 0.012 ng/mL (0.000-0.034)
[2022-05-21 18:19] VITALS: BP 174/88; PULSE 67; RESP 22; O2SAT 96
[2022-05-21] MEDS: SODIUM CHLORIDE 0.9% IV 1,000 ML 999 ML IV CONT (18:21)
--- NOTE | 2022-05-21 18:59 | ED.NEUROSD ---
HPI - Neuro Symptoms/Deficit General Chief Complaint: Neuro Symptoms/Deficit Stated Complaint: left sided numbness Time Seen by Provider: 05/21/22 16:36 Source: patient and RN notes reviewed Mode of arrival: ambulatory Limitations: no limitations History of Present Illness HPI Narrative: This is an 86 year old male with history of emphysema, hypertension, PAD who presents for evaluation of left arm numbness and left face numbness starting yesterday. He states this feeling has been intermittent and then constant. He also reports that he has left flank discomfort starting today. He thinks it may be due to pinched nerve in his arm. He reports mild pain to left forearm for years. He denies CVA or TIA in the past. He denies associated headache, blurred vision, weakness, left leg symptoms, dizziness, difficulty speaking or swallowing. He denies worsening shortness of breath or chest pain. Related Data Home Medications Medication Instructions Recorded Confirmed triamcinolone acetonide 0.1 % 1 applic topical QID PRN Itching 03/19/19 01/25/22 topical cream melatonin 5 mg capsule mg PO PRN 11/02/20 01/25/22 naproxen sodium 220 mg tablet 220 mg PO Q8H 11/02/20 01/25/22 Allergies Allergy/AdvReac Type Severity Reaction Status Date / Time diclofenac Allergy Unknown unknown Verified 05/10/22 13:05 lisinopril Allergy Unknown cough Verified 05/10/22 13:05 Sulfa (Sulfonamide Allergy Unknown Pt does Verified 05/10/22 13:05 Antibiotics) not remember reaction metronidazole AdvReac Severe DIARRHEA Verified 05/10/22 13:05 Review of Systems Constitutional: Constitutional: Denies weakness Eyes: Eyes: Denies change in vision and Denies photophobia Cardiovascular: Cardiovascular: Denies syncope, Denies rapid heart rate, Denies irregular heart rhythm, Denies leg edema and Reports dyspnea (chronic) Respiratory: Respiratory: Denies chest congestion, Denies hemoptysis, Denies excessive phlegm production and Reports dyspnea (chronic) Gastrointestinal: Gastrointestinal: Reports abdominal pain, Denies hematochezia, Denies diarrhea and Denies vomiting Genitourinary: Genitourinary: Denies hematuria, Denies dysuria, Denies penile discharge and Denies testicular pain Musculoskeletal: Musculoskeletal: Denies joint swelling, Denies loss of height and Denies muscle weakness Neurologic: Denies syncope, Denies focal weakness, Reports numbness and Denies weakness [facility] Past Medical History Medical History (Updated 05/21/22 @ 21:14 by Aparna Kumar MD) Achalasia 2013 Aortic aneurysm of unspecified site, without rupture Atypical depressive disorder BMI 26.0-26.9,adult Chronic kidney disease, stage 3 (moderate) Chronic obstructive pulmonary disease, unspecified Deficiency of 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, site unspecified Diabetes mellitus DM w/o complication type II Gastro-esophageal reflux disease without esophagitis Irritable bowel syndrome Lumbago Major depressive disorder, recurrent, moderate Other intervertebral disc degeneration, lumbosacral region Tobacco use Urethritis Surgical History Surgical History H/O hernia repair 06/07/2010 History of colonoscopy 09/05/2013 History of esophageal surgery Heller myotomy with gastric wrap, 02/11/2014 Social History Social History (Updated 05/10/22 @ 13:10 by Ting Shell MA) Smoking packs per day: 1 Smoking cigarettes per day: 20.0 Years smoked: 50 Smoking pack-years: 50.00 Smoking status: Current some day smoker Tobacco type: cigars Smoking end date: 05/07/12 Alcohol intake: never Substance use: never Lack of Transportation: No Lack of Food: Never True Current Housing: I Have Housing Concerned About Future Housing: No Difficulty Paying Gas/Electric Bills: No Difficulty Paying for Meds: No Currently Unemployed: No Education: Trade/Vocatio
[2022-05-21 19:57] VITALS: BP 200/86; PULSE 70; RESP 23; O2SAT 95
== END 2022-05-21 21:33 | disposition home or self-care (01) ==
PROVIDERS: Emergency Medicine; Emergency Provider General Practice; PCP Family Medicine
DX: R20.2 Paresthesia of skin (principal); I12.9 Hypertensive chronic kidney disease with stage 1 through stage 4 chronic kidney disease, or unspecified chronic kidney disease; E11.22 Type 2 diabetes mellitus with diabetic chronic kidney disease; N18.30 Chronic kidney disease, stage 3 unspecified; J43.9 Emphysema, unspecified; E11.51 Type 2 diabetes mellitus with diabetic peripheral angiopathy without gangrene; I73.9 Peripheral vascular disease, unspecified; I71.40 Abdominal aortic aneurysm, without rupture, unspecified; E53.9 Vitamin B deficiency, unspecified; K21.9 Gastro-esophageal reflux disease without esophagitis; K58.9 Irritable bowel syndrome, unspecified; F33.9 Major depressive disorder, recurrent, unspecified; Z87.891 Personal history of nicotine dependence; Z79.84 Long term (current) use of oral hypoglycemic drugs; I45.9 Conduction disorder, unspecified; I51.7 Cardiomegaly; R94.31 Abnormal electrocardiogram [ECG] [EKG]
CPT/HCPCS: 36415; 70450; 71045; 74176; 80053; 81001; 82948; 83690; 84484; 85025; 85610; 85730; 93005; 96360; 99284; J7030

== ENCOUNTER 2022-05-23 13:42 | Outpatient (CLI) | payer MEDICARE, SELFPAY ==
--- NOTE | ~2022-05-23 | MR_ITS ---
MRI of the brain Clinical History: Left-sided paresthesias Technique: Axial and sagittal T1-weighted images were acquired. These were followed by axial T2-weigh sharona, diffusion weighted, gradient, and FLAIR images. Following intravenous administration of 14 cc Mu ltiHance gadolinium, T1-weighted fat-sat imaging was performed in the axial and coronal planes. Findings: There is a 4-5 mm focus of acute restricted diffusion in the right thalamus, compatible wit h focal acute infarct. No intracranial hemorrhage or mass lesion identified. Mild to moderate chronic white matter changes are present in the periventricular white matter bilaterally otherwise. Ventricles and some arachnoid spaces are minimally prominent. Orbits are unremarkable. There is minim al ethmoid sinus disease. Remaining paranasal sinuses and mastoid air cells are clear. Major intracra nial flow voids are intact. Sagittal midline structures are intact. No abnormal postcontrast enhancement identified. IMPRESSION: 4-5 mm acute infarct probably in the right thalamus. [id number] background chronic white matter changes. Reviewed, dictated and finalized at location . F MEDICAL DIRECTOR IMPRESSION: 4-5 mm acute infarct probably in the right thalamus. [id number] background chronic white matter changes.
== END 2022-05-23 13:43 | disposition home or self-care (01) ==
PROVIDERS: PCP Family Medicine; Visit Provider Physician Assistant
DX: I63.9 Cerebral infarction, unspecified (principal); R20.2 Paresthesia of skin; R20.0 Anesthesia of skin
CPT/HCPCS: 70553; A9577

== ENCOUNTER 2022-05-26 13:02 | Outpatient (CLI) | payer MEDICARE, SELFPAY ==
--- NOTE | ~2022-05-26 | CT_ITS ---
EXAMINATION: CT diagnostic chest wo con DATE: 05/26/2022 13:37 INDICATION: Lung nodule TECHNIQUE: Computed tomography (CT) of the chest was performed without intravenous contrast. Automate d exposure control and iterative reconstruction technique were employed. Exam dose: 175.21 mGy-cm to brittni exam DLP. COMPARISON: 05/21/2022 AP chest 05/26/2021 CT chest FINDINGS: There is slight interval decrease in size of previously reported middle lobe nodule at the lateral right infrahilar area, currently measuring approximately 8.5 mm compared to 9 mm on 05/26/2021 . Stable 1.3 x 2.2 cm right anterior mediastinal soft tissue mass, unchanged since 05/26/2021. There is calcification at the aortic valve. There is aortic and great vessel and coronary artery calc ification. No thoracic aortic aneurysm. Normal heart size. No pericardial or pleural effusion. No other hilar or mediastinal mass lesion or lymphadenopathy. Calcified aortopulmonary window and lef t hilar nodes consistent with old granulomatous disease. There are calcified hepatic and splenic gran ulomas as well. Mild bilateral gynecomastia. Multiple small dependent gallstones. Hepatic masses cannot be excluded; at least one approximately 1.6 cm hypoattenuating lesion is sugges sharona in the posterior right hepatic lobe (series 2 image 109).. Normal morphology of the adrenal glands. Bilateral renal cysts. Diffuse idiopathic skeletal hyperostosis of the thoracic spine. Severe degenerative disc disease in the lower cervical spine. IMPRESSION: Slightly diminished size of middle lobe nodule and stable right anterior mediastinal mas s since 05/26/2022 Reviewed, dictated and finalized at Location A. Reviewed, dictated and finalized at location B. TAL PERFORMANCE ANALYST IMPRESSION: Slightly diminished size of middle lobe nodule and stable right an terior mediastinal mass since 05/26/2022
== END 2022-05-26 13:03 | disposition home or self-care (01) ==
PROVIDERS: PCP Family Medicine; Visit Provider Internal Medicine Pulmonary Disease
DX: R91.1 Solitary pulmonary nodule (principal)
CPT/HCPCS: 71250

== ENCOUNTER 2022-06-05 12:24 | Outpatient (CLI) | payer MEDICARE, SELFPAY ==
--- NOTE | ~2022-06-05 | US_ITS ---
EXAMINATION: US carotid duplex BI DATE: 06/05/2022 13:11 INDICATION: Infarct in right thalamus. Other cerebral infarction due to occlusion or stenosis. TECHNIQUE: Grayscale, color Doppler, and pulsed Doppler images of the cervical carotid arteries were obtained. The degree of vessel stenosis is placed in one of the following categories: normal, <50%, 5 0-69%, >=70% but less than near-occlusion, near-occlusion, or total occlusion. Note that percent sten osis relative to normal distal artery lumen diameter is indirectly measured from velocity measurement s as described by Sandeep, et al. Radiology 2003; 229:340-346. COMPARISON: Ultrasound 11/22/2015 FINDINGS: RIGHT: The right common carotid artery (CCA) peak systolic velocity (PSV) is 75 cm/s. The right internal car otid artery (ICA) PSV is 44 cm/s. The right ICA end-diastolic velocity (EDV) is 12 cm/s. The right IC A/CCA PSV ratio is 0.9. Grayscale and color Doppler images yield an estimate of <50% diameter reducti on from plaque in the ICA. There is antegrade flow in the right vertebral artery. LEFT: The left CCA PSV is 66 cm/s. The left ICA PSV is 56 cm/s. The left ICA EDV is 14 cm/s. The left ICA/C CA PSV ratio is 0.8. Grayscale and color Doppler images yield an estimate of <50% diameter reduction from plaque in the ICA. There is antegrade flow in the left vertebral artery. IMPRESSION: 1. <50% stenosis in the right internal carotid artery. 2. <50% stenosis in the left internal carotid artery. Reviewed, dictated and finalized at location A. SKATING INSTRUCTOR
== END 2022-06-05 12:25 | disposition home or self-care (01) ==
PROVIDERS: PCP Family Medicine; Visit Provider Physician Assistant
DX: I63.81 Other cerebral infarction due to occlusion or stenosis of small artery (principal); I65.23 Occlusion and stenosis of bilateral carotid arteries
CPT/HCPCS: 93880

== ENCOUNTER 2022-06-13 00:53 | Day surgery (SDC) | payer MEDICARE, SELFPAY ==
[2022-05-29 11:58] VITALS: BMI 24.9
--- NOTE | 2022-06-12 08:52 | SUR.PREOP ---
06/12/22 I received a phone call from Jose De Jesus [facility] this morning. She wanted to make sure it was still okay for Jose De Jesus to have his procedure tomorrow. Upon further evaluation of patients condition and chart, I spoke with Dr Kumar regarding office visits and test results. Dr Kumar states the patient is okay to proceed with EGD. Cate JONES in [facility] notified Jose De Jesus's .
[2022-06-13 08:56] VITALS: BP 148/81; PULSE 80; RESP 18; TEMP 36.3; O2SAT 96
--- NOTE | 2022-06-13 09:07 | PM.HPGS ---
History of Present Illness History of Present Illness Consent: Risks, benefits, and alternatives have been discussed and questions answered. Patient agrees to proceed with procedure. Chief complaint: dysphagia Narrative: Jose De Jesus Dennis is a 86 year old male Presents for EGD. Patient has a history of achalasia underwent Heller myotomy and subsequent fundoplication at [facility] 2013. Patient reports over the last year he will eat food sometimes feel as though he is choking. He has difficulty with food hanging in his throat. For this reason an EGD is requested. 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 Review of Systems Review of Systems: Review of systems noncontributory. 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, site unspecified Diabetes mellitus DM w/o complication type II Gastro-esophageal reflux disease without esophagitis Irritable bowel syndrome Lumbago Major depressive disorder, recurrent, moderate Other intervertebral disc degeneration, lumbosacral region Tobacco use Urethritis Surgical History Surgical History H/O hernia repair 06/07/2010 History of colonoscopy 09/05/2013 History of esophageal surgery Heller myotomy with gastric wrap, 02/11/2014 Social History Social History Smoking packs per day: 1 Smoking cigarettes per day: 20.0 Years smoked: 50 Smoking pack-years: 50.00 Smoking status: Former smoker Tobacco type: cigarettes and cigars Smoking end date: 05/07/12 Alcohol intake: current Drinks per week: 14 Substance use: never Lack of Transportation: No Lack of Food: Never True Current Housing: I Have Housing Concerned About Future Housing: No Difficulty Paying Gas/Electric Bills: No Difficulty Paying for Meds: No Currently Unemployed: No Education: Trade/Vocational Certificate Difficulty w/ Childcare or Family Care: No Living arrangements: with family Gender identity (if verbalized by the patient): Male Sexual Orientation (if Verbalized by the Patient): Straight or Heterosexual Spiritual care concerns: No Meds Home Medications and Allergies Home Medications Medication Instructions Recorded Confirmed Type triamcinolone acetonide 0.1 % 1 applic topical QID PRN Itching 03/19/19 06/07/22 History topical cream melatonin 5 mg capsule 5 mg PO DAILY PRN Sleep 11/02/20 06/07/22 History naproxen sodium 220 mg tablet 220 mg PO DAILY 11/02/20 06/07/22 History latanoprost 0.005 % eye drops See Rx Instructions .Route 01/11/21 06/07/22 Rx .COMPLEX #7.5 mL allopurinol 300 mg tablet See Rx Instructions .Route 05/11/22 06/07/22 Rx .COMPLEX #90 tabs dicyclomine 10 mg capsule 10 mg PO BID #180 caps 05/11/22 06/07/22 Rx famotidine 20 mg tablet 20 mg PO DAILY #90 tabs 05/11/22 06/07/22 Rx glimepiride 4 mg tablet See Rx Instructions .Route 05/11/22 06/07/22 Rx .COMPLEX #90 tabs ibandronate 150 mg tablet 150 mg PO MONTHLY #12 tabs 05/11/22 06/07/22 Rx spironolactone 25 See Rx Instructions .Route 05/11/22 06/07/22 Rx mg-hydrochlorothiazide 25 mg tablet .COMPLEX #90 tabs trazodone 100 mg tablet See Rx Instructions .Route 05/11/22 06/07/22 Rx .COMPLEX #90 tabs hydrocortisone 0.25 % topical cream 1 applic topical DAILY 05/29/22 06/07/22 History lactase 3,000 unit tablet (Lactaid) 3,000 unit PO ONCE PRN Cramping 05/29/22 06/07/22 History lidocaine 5 % topical patch 1 patch topical DAILY 05/29/22 06/07/22 History (Lidoderm) umeclid
[2022-06-13] MEDS: LACTATED RINGERS 1,000 ML 150 ML IV CONT (09:18)
[2022-06-13 09:19] LABS: Glucose Point of Care 107 mg/dl (65-105)
--- NOTE | 2022-06-13 09:34 | WPDANESEPPF ---
Anes - Initial Pre Proc Eval Procedure: Operation Date: 06/13/22 10:00 Proposed Procedures p Esophagogastroduodenoscopy - Zac Quinones MD Date/Time: 06/13/22 09:34 Surgeon: Zac Quinones MD Pre Op Diagnosis: dysphagia Patient Data Age: 86 Gender: M Height: 1.68 m Weight: 69.6 kg Last Vital Signs O2 Del Method Room Air 06/13/22 08:56 Allergies Allergy/AdvReac Type Severity Reaction Status Date / Time diclofenac Allergy Unknown unknown Verified 06/13/22 08:53 lisinopril Allergy Unknown cough Verified 06/13/22 08:53 Sulfa (Sulfonamide Allergy Unknown Pt does Verified 06/13/22 08:53 Antibiotics) not remember reaction brimonidine Allergy Unknown Verified 06/13/22 09:00 metronidazole AdvReac Severe DIARRHEA Verified 06/13/22 08:53 timolol AdvReac Hypertensio Verified 06/13/22 09:00 n Home Medications Medication Instructions Recorded Confirmed Type triamcinolone acetonide 0.1 % 1 applic topical QID PRN Itching 03/19/19 06/07/22 History topical cream melatonin 5 mg capsule 5 mg PO DAILY PRN Sleep 11/02/20 06/07/22 History naproxen sodium 220 mg tablet 220 mg PO DAILY 11/02/20 06/07/22 History latanoprost 0.005 % eye drops See Rx Instructions .Route 01/11/21 06/07/22 Rx .COMPLEX #7.5 mL allopurinol 300 mg tablet See Rx Instructions .Route 05/11/22 06/07/22 Rx .COMPLEX #90 tabs dicyclomine 10 mg capsule 10 mg PO BID #180 caps 05/11/22 06/07/22 Rx famotidine 20 mg tablet 20 mg PO DAILY #90 tabs 05/11/22 06/07/22 Rx glimepiride 4 mg tablet See Rx Instructions .Route 05/11/22 06/07/22 Rx .COMPLEX #90 tabs ibandronate 150 mg tablet 150 mg PO MONTHLY #12 tabs 05/11/22 06/07/22 Rx spironolactone 25 See Rx Instructions .Route 05/11/22 06/07/22 Rx mg-hydrochlorothiazide 25 mg tablet .COMPLEX #90 tabs trazodone 100 mg tablet See Rx Instructions .Route 05/11/22 06/07/22 Rx .COMPLEX #90 tabs hydrocortisone 0.25 % topical cream 1 applic topical DAILY 05/29/22 06/07/22 History lactase 3,000 unit tablet (Lactaid) 3,000 unit PO ONCE PRN Cramping 05/29/22 06/07/22 History lidocaine 5 % topical patch 1 patch topical DAILY 05/29/22 06/07/22 History (Lidoderm) umeclidinium 62.5 mcg-vilanterol 1 inh inhalation DAILY #60 ea 06/07/22 06/07/22 Rx 25 mcg/actuation powdr for inhalation Laboratory Tests 06/13/22 09:15 POC Capillary Glucose 107 mg/dl H mg/dl (65-105) Patient hx anesthesia problems: none Family hx anesthesia problems: none Results Review: All pre-operative results and documents have been reviewed as part of the pre-operative evaluation. [facility] Past Medical History Medical History Achalasia 2014 Aortic aneurysm of unspecified site, without rupture Atypical depressive disorder BMI 26.0-26.9,adult Chronic kidney disease, stage 3 (moderate) Chronic obstructive pulmonary disease, unspecified Deficiency of 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, site unspecified Diabetes mellitus DM w/o complication type II Gastro-esophageal reflux disease without esophagitis Irritable bowel syndrome Lumbago Major depressive disorder, recurrent, moderate Other intervertebral disc degeneration, lumbosacral region Tobacco use Urethritis Surgical History Surgical History H/O hernia repair 06/07/2010 History of colonoscopy 09/05/2013 History of esophageal surgery Heller myotomy with gastric wrap, 02/11/2014 Social History Social History Smoking packs per day: 1 Smoking cigarettes per day: 20.0 Years smoked: 50 Smoking pack-years: 50.00 Smoking status: Former smoker Tobacco type: cigarettes and cigars Smoking end date: 05/07/12 Alcohol intake: current Drinks per week: 14 Substance use: never Lack of Transportation: No Lack of Food
[2022-06-13 10:05] VITALS: BP 117/68; PULSE 67; RESP 16; O2SAT 100
[2022-06-13 10:15] VITALS: BP 140/83; PULSE 62; RESP 18; O2SAT 98
[2022-06-13 10:25] VITALS: BP 169/87; PULSE 61; RESP 19; O2SAT 97
== END 2022-06-13 10:35 | disposition home or self-care (01) ==
PROVIDERS: PCP Family Medicine; Visit Provider Internal Medicine Gastroenterology
PROC: 0DJ08ZZ Inspection of Upper Intestinal Tract, Via Natural or Artificial Opening Endoscopic (ICD-10-PCS; CPT 43235; principal; 2022-06-13 10:00)
DX: K22.10 Ulcer of esophagus without bleeding (principal); R13.10 Dysphagia, unspecified; Z87.19 Personal history of other diseases of the digestive system; I71.9 Aortic aneurysm of unspecified site, without rupture; E11.22 Type 2 diabetes mellitus with diabetic chronic kidney disease; N18.30 Chronic kidney disease, stage 3 unspecified; J44.9 Chronic obstructive pulmonary disease, unspecified; R20.0 Anesthesia of skin; I69.398 Other sequelae of cerebral infarction; K21.9 Gastro-esophageal reflux disease without esophagitis; K58.9 Irritable bowel syndrome, unspecified; F33.1 Major depressive disorder, recurrent, moderate; M51.36 Other intervertebral disc degeneration, lumbar region; Z87.891 Personal history of nicotine dependence; Z79.84 Long term (current) use of oral hypoglycemic drugs; Z79.51 Long term (current) use of inhaled steroids
CPT/HCPCS: 43249; 82948; 88305; C1726; J2704; J7120

== ENCOUNTER 2022-06-28 10:14 | Outpatient (CLI) | payer MEDICARE, SELFPAY ==
--- NOTE | 2022-06-28 11:00 | NEURO_ITS ---
Impression: # Complains of numbness of hands. 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 # Evolving bilateral Carpal Tunnel Syndrome. # Normal needle/EMG exam. Motor Nerve Conduction Upper Extremities Median Nerve Conduction Velocity (m/sec) Terminal Latency (msec) Response Voltage(mV) Elbow-Wrist Wrist Elbow Wrist Right 51 4.1 3 4 Left 54 4.1 3 3 Ulnar Nerve Conduction Velocity (m/sec) Terminal Latency (msec) Response Voltage(mV) Above Elbow Below Elbow Wrist Above Elbow Below Elbow Wrist Right 47 53 2.8 4 2 5 Left 49 51 3.0 4 5 6 F-Wave Latency Median (ms) Ulnar (ms) Right 29.4 29.9 Left 33.4 32.1 Sensory Nerve Conduction Upper Extremities Median Nerve Stimulation Terminal Latency (msec) Wrist/Digit Response Voltage (uV) Wrist Right 3.6/3.7 29/35 Left 3.7/3.7 42/22 Ulnar Nerve Stimulation Terminal Latency (msec) Wrist/Digit Response Voltage (uV) Wrist Right 2.3 17 Left 3.4 5 Radial Nerve Terminal Latency (msec) Response Voltage(mV) Right 2.6 10 Left 2.7 14 Left Right Muscles Examined Fibrillation Fasciculation Scarcity Voltage Duration Left Right Left Right Left Right Left Right Left Right Deltoid Biceps X X Brachioradialis Triceps X X Pronator Teres X X Ext Indicis X X Ext Digitorum X X Abd Poll Brev X X 1st Dorsal Interosseus Paraspinals MTDD
== END 2022-06-28 10:15 | disposition home or self-care (01) ==
PROVIDERS: PCP Family Medicine; Visit Provider Family Medicine
DX: G56.23 Lesion of ulnar nerve, bilateral upper limbs (principal); G56.03 Carpal tunnel syndrome, bilateral upper limbs
CPT/HCPCS: 95886; 95911

== ENCOUNTER 2023-01-31 13:03 | Outpatient (CLI) | payer MEDICARE, SELFPAY ==
--- NOTE | 2023-01-31 13:24 | ECHO_ITS ---
Patient Info Name: Jose De Jesus Dennis Age: 87 years : 1935 Gender: Male Ht: 66 in Wt: 146 lbs BSA: 1.76 m2 HR: 78 bpm BP: 149 / 79 mmHg Technical Quality: Fair Exam Date: 01/31/2023 1:35 PM Exam Location: [facility] Patient Status: Outpatient Admit Date: 01/31/2023 Staff Ordering Physician: Nick Lopez DO Copyholder: Manasa Copeland RDCS Attending Provider: Nick Lopez DO Referring Physician: John MORRISON; Exam Type: CA echo doppler color flow Study Info Indications - NONRHEUMATIC VAALVE STENOSIS Complete two-dimensional, color flow and Doppler transthoracic echocardiogram is performed. Summary 1. Complete two-dimensional, color flow and Doppler transthoracic echocardiogram is performed. 2. Left ventricular chamber dimension is normal. 3. Left ventricular systolic function is normal, estimated at 60-65%. 4. There is mild concentric increased left ventricular wall thickness. 5. The left ventricular diastolic function is grade I diastolic dysfunction. 6. E/e' 8 is minimally elevated. 7. Global longitudinal strain is mildly abnormal at -16.2%. 8. Left atrial chamber dimension is mildly enlarged. 9. The aortic valve is not well visualized. Cannot determine number of aortic valve leaflets. 10. There is moderate aortic valve stenosis based on a peak velocity of 361 cm/s, mean gradient of 36 mmHg, and aortic valve area of 1.3 cm2. 11. There is severe aortic valve sclerosis. 12. There is mild to moderate mitral valve regurgitation. 13. Mild pulmonary hypertension, estimated pulmonary arterial systolic pressure is 40 mmHg. Left Ventricle E/e' 8 is minimally elevated. Global longitudinal strain is mildly abnormal at -16.2%. Left ventricular chamber dimension is normal. Left ventricular systolic function is normal, estimated at 60-65%. There is mild concentric increased left ventricular wall thickness. The left ventricular diastolic function is grade I diastolic dysfunction. Right Ventricle Right ventricular chamber dimension is normal. Right ventricular systolic function is normal. Left Atria Left atrial chamber dimension is mildly enlarged. Right Atria Right atrial chamber dimension is normal. Aortic Valve The aortic valve is not well visualized. Cannot determine number of aortic valve leaflets. There is moderate aortic valve stenosis based on a peak velocity of 361 cm/s, mean gradient of 36 mmHg, and aortic valve area of 1.3 cm2. There is severe aortic valve sclerosis. There is mild aortic valve regurgitation. Pulmonic Valve There is no pulmonic regurgitation. Mitral Valve There is no mitral valve stenosis. There is mild to moderate mitral valve regurgitation. Tricuspid Valve There is no tricuspid valve regurgitation. Mild pulmonary hypertension, estimated pulmonary arterial systolic pressure is 40 mmHg. Pericardium/Pleural There is no pericardial effusion. Inferior Vena Cava Normal inferior vena cava with >50% collapse upon inspiration consistent with normal right atrial pressure, 5 mmHg. Aorta The aortic root size at the sinus of Valsalva is normal. Left Ventricular Outflow Tract Name Value Normal LVOT 2D LVOT Diameter 2.1 cm LVOT Doppler LVOT Peak Gradient
== END 2023-01-31 13:04 | disposition home or self-care (01) ==
PROVIDERS: PCP Family Medicine; Visit Provider Internal Medicine Cardiovascular Disease
DX: I08.3 Combined rheumatic disorders of mitral, aortic and tricuspid valves (principal)
CPT/HCPCS: 93306

== ENCOUNTER 2024-01-22 13:31 | Outpatient (CLI) | payer MEDICARE, SELFPAY ==
--- NOTE | 2024-01-22 13:44 | ECHO_ITS ---
Patient Info Name: Jose De Jesus Dennis Age: 88 years : 1935 Gender: Male Ht: 65 in Wt: 150 lbs BSA: 1.78 m2 HR: 65 bpm BP: 87 / 90 mmHg Heart Rhythm: Sinus Rhythm Technical Quality: Good Exam Date: 01/22/2024 1:59 PM Exam Location: [facility] Patient Status: Outpatient Admit Date: 01/22/2024 Staff Ordering Physician: Nick Lopez DO Inbound Customer Service Representative: Lea Anthony RDCS Attending Provider: Nick Lopez DO Referring Physician: John MORRISON; Exam Type: CA echo doppler color flow Study Info Indications - NONRHEUMATIC AORTIC VALVE STENOSIS Complete two-dimensional, color flow and Doppler transthoracic echocardiogram is performed. Summary 1. Complete two-dimensional, color flow and Doppler transthoracic echocardiogram is performed. 2. Left ventricular chamber dimension is normal. 3. Left ventricular systolic function is normal, estimated at 55-60%. 4. There is moderate concentric increased left ventricular wall thickness. 5. Left ventricular septal wall motion is abnormal with septal motion related to bundle branch block. 6. The left ventricular diastolic function is grade I diastolic dysfunction. 7. E/e' 12 is mildly elevated. 8. Left atrial chamber dimension is mildly enlarged. 9. There is severe aortic valve sclerosis. 10. There is mild to moderate aortic valve regurgitation. 11. There is critical aortic valve stenosis with a peak velocity of 347 cm/s, mean gradient of 29 mmHg, and aortic valve area of 0.5 cm2. 12. There is trace mitral valve regurgitation. 13. There is trace tricuspid valve regurgitation. 14. No pulmonary hypertension, estimated pulmonary arterial systolic pressure is 34 mmHg. Left Ventricle E/e' 12 is mildly elevated. Left ventricular chamber dimension is normal. Left ventricular systolic function is normal, estimated at 55-60%. There is moderate concentric increased left ventricular wall thickness. Left ventricular septal wall motion is abnormal with septal motion related to bundle branch block. The left ventricular diastolic function is grade I diastolic dysfunction. Right Ventricle Right ventricular systolic function is normal and with normal TAPSE 2.8 cm. Right ventricular chamber dimension is normal. Left Atria Left atrial chamber dimension is mildly enlarged. Right Atria Right atrial chamber dimension is normal. Aortic Valve There is critical aortic valve stenosis with a peak velocity of 347 cm/s, mean gradient of 29 mmHg, and aortic valve area of 0.5 cm2. The aortic valve is trileaflet. There is severe aortic valve sclerosis. There is mild to moderate aortic valve regurgitation. Pulmonic Valve There is no pulmonic regurgitation. Mitral Valve There is no mitral valve stenosis. There is trace mitral valve regurgitation. Tricuspid Valve There is trace tricuspid valve regurgitation. No pulmonary hypertension, estimated pulmonary arterial systolic pressure is 34 mmHg. Pericardium/Pleural There is no pericardial effusion. Inferior Vena Cava Normal inferior vena cava with >50% collapse upon inspiration consistent with normal right atrial pressure, 5 mmHg. Aorta The aortic root size at the sinus of Valsalva is normal. Left Ventricular Outflow Tract Name Value Normal LVOT 2D LVOT Diameter 2.1 cm LVOT Doppler
== END 2024-01-22 13:32 | disposition home or self-care (01) ==
PROVIDERS: PCP Family Medicine; Visit Provider Internal Medicine Cardiovascular Disease
DX: I08.3 Combined rheumatic disorders of mitral, aortic and tricuspid valves (principal); I50.30 Unspecified diastolic (congestive) heart failure; I45.10 Unspecified right bundle-branch block
CPT/HCPCS: 93306

== ENCOUNTER 2024-02-25 11:30 | Outpatient (CLI) | payer MEDICARE, SELFPAY ==
--- NOTE | ~2024-02-25 | CT_ITS ---
CT Scan of the Chest without Contrast: Clinical Indication: Mediastinal mass Technique: Contiguous sections were acquired throughout the chest without intravenous contrast. Dose reduction technique was used on this scan by utilizing automated exposure control and iterative recon struction technique. The dose-length product (DLP) was 248.78 mGy-cm. COMPARISON: 05/26/2022 Findings: There is a circumscribed mass at the inferior aspect of the anterior mediastinum, measuring 2.3 x 1.5 cm, essentially stable from prior exam (axial image 72).. There are extensive atherosclerotic calcif ications of the aorta and coronary arteries. There is no evidence of pleural or pericardial effusion. There is moderate to advanced emphysema, probable chronic interstitial changes or postinflammatory ch anges in the right upper lobe in particular. 5 mm medial left upper lobe pulmonary nodule noted (axia l image 32). Stable 1 cm right middle lobe pulmonary nodule (axial image 63). Images through the upper abdomen reveal 9.1 x 8.0 cm hypodense right hepatic lobe mass, extensively i nvolving the right hepatic lobe, compatible with metastatic disease. Lesion measures at least 9 cm in craniocaudal extent. There is a large lytic lesion with extensive destructive the sternal manubrium, new from prior exam, compatible with osseous metastasis. No other definite lytic osseous lesion identified in the thorax.. Impression: Extensive hypodense right hepatic lobe mass, as detailed above, highly suspicious for neoplasm/metast atic disease. Consider tissue sampling to establish histologic diagnosis as indicated. Large lytic/destructive lesion extensively involving the sternal manubrium, compatible with osseous m etastasis. Stable 1 cm right middle lobe pulmonary nodule. 5 mm left upper lobe pulmonary nodule, new from prior exam, indeterminate. Stable 2.3 x 1.5 cm anterior mediastinal mass. Moderate to advanced emphysema with probable chronic interstitial postinflammatory changes in the rig ht upper lobe. Reviewed, dictated and finalized at location M. Impression: Extensive hypodense right hepatic lobe mass, as detailed above, highly suspicio us for neoplasm/metastatic disease. Consider tissue sampling to establish histo logic diagnosis as indicated. Large lytic/destructive lesion extensively involving the sternal manubrium, com patible with osseous metastasis. Stable 1 cm right middle lobe pulmonary nodule. 5 mm left upper lobe pulmonary nodule, new from prior exam, indeterminate. Stable 2.3 x 1.5 cm anterior mediastinal mass. Moderate to advanced emphysema with probable chronic interstitial postinflammat ory changes in the right upper lobe.
== END 2024-02-25 11:31 | disposition home or self-care (01) ==
PROVIDERS: PCP Family Medicine; Visit Provider Nurse Practitioner Family
DX: J98.59 Other diseases of mediastinum, not elsewhere classified (principal); R91.1 Solitary pulmonary nodule; R16.0 Hepatomegaly, not elsewhere classified; J43.9 Emphysema, unspecified
CPT/HCPCS: 71250